=== PATIENT | male | born 2000 | race Caucasian/White ===

== ENCOUNTER 2024-05-17 13:59 | Outpatient (AMB) | payer BC, SELFPAY ==
--- NOTE | 2024-05-17 14:02 | MHC.PC.OV ---
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 Intake Note: New patient visit Allergies cotton seed oil Allergy (Unknown, Uncoded 05/17/24 14:06) Red hot Lump on skin Tobacco use date assessed: 05/17/24 Dental Screening Dental Screen Date: 05/17/24 Did you have a dental visit in the last 12 months?: Yes Did you have a dental problem in the last 6 months where you did not have access to dental care?: No Was dental information given to patient?: Patient has dentist HPI HPI Comments History of Present Illness Details This is a 23-year-old transgender male with a past medical history of ADHD, depression with anxiety an unspecified inflammatory polyarthropathy presenting to [facility]. Patient is transferring from [facility]. The patient's pronouns are he/him/they/them. Records transfer pending. The patient feels well. He is planning to visit his partner in [place] soon. Requests physical. Last appointment at [facility] was 03/10/2023. ADHD, depression with anxiety-followed by therapist and psychiatrist. This is mostly via telehealth. Taking Adderall 15 mg daily and Lexapro 10 mg daily. No SI or HI. The patient is followed by [facility]. He has a testopel implant. The patient underwent top surgery in 2019. Patient is followed by Rheumatology at [facility]. The patient takes Plaquenil. He tells me that he had been seen PT/OT and a hand specialist for wrist and hand pains. He did not improve. Patient also gets pain in the knees and more recently stiffness in his back. He does have a good mattress and is doing stretches. No tick bites or skin rashes. Patient has a pet ferret that goes outside. Using a heating pad improves back stiffness. ROS: Constitutional: No unexplained weight loss, fever, chills, fatigue or night sweats. Eyes: No vision changes, blurry vision, double vision, eye pain, eye redness, eye discharge. ENT: No hearing loss, sneezing, congestion, runny nose or sore throat. Respiratory: No shortness of breath, cough or sputum production. Cardiovascular: No chest pain, chest pressure or chest discomfort. No palpitations or pedal edema. Gastrointestinal: No anorexia, nausea, vomiting or diarrhea. No abdominal pain or blood in stool. Genitourinary: No dysuria, hematuria, urinary frequency. Neurologic: No headache, dizziness, syncope, unilateral weakness, ataxia, numbness or tingling in the extremities. Musculoskeletal: see HPI Hematologic/Lymphatics: No bleeding or bruising. No painful lymph nodes. Skin: No rash or itching. Psychiatric: No SI/HI. Physical exam: Constitutional: Alert, in no distress. Head: Normocephalic. Eyes: Pupils are equal, round and reactive to light. Extraocular muscles intact. Ear, Nose and Throat: Canals clear. TMs normal. Normal nasal mucosa. No nasal discharge. No oral lesions. Neck: Supple, Full range of motion. No lymphadenopathy. No palpable thyroid masses. Respiratory: Clear to auscultation. Cardiovascular: S1 S2 regular. No murmurs. Gastrointestinal: Abdomen soft, non-tender, non-distended. Normal bowel sounds. No palpable masses. Neurologic: No focal neurological deficits. Symmetric patellar reflexes. Moves all extremities spontaneously. Sensation intact bilaterally. Skin: No rashes or lesions. Musculoskeletal: FROM. No deformities. Extremities: Warm and well perfused. No clubbing, cyanosis or edema. Psychiatric: Normal mood and affect [facility] Medical History (Updated 05/18/24 @ 08:54 by AGUSTIN De Leon) Unspecified inflammatory polyarthropathy ADHD Transgender Depression with anxiety Surgical History (Updated 05/18/24 @ 08:54 by AGUSTIN De Leon) H/O breast surgery [place] teeth extracted Family History (Updated 05/17/24 @ 14:30 by AGUSTIN De Leon) Father Hypertension Maternal Aunt Breast cancer Paternal Grandfather Heart attack Social History Patient Tobacco Use Status: Never used Tobacco e-Cigarette/Vaping Use: Never Used service: No Current occupational status: employed 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 How often do you have a drink containing alcohol?: Monthly or less 2. How many drinks containing alcohol do you have on a typical day when you are drinking?: 1 or 2 3. How often do you have six or more drinks on one occasion?: Never Total Score: 1 Physical exam (Primary Care) Vital Signs: Last Vital Signs Temp 98.4 F 05/17/24 14:10 Pulse 88 05/17/24 14:10 Resp 14 05/17/24 14:10 BP 126/72 05/17/24 14:10 Pulse Ox 99 05/17/24 14:10 Oxygen Delivery Method Room Air 05/17/24 14:10 BMI result Body Mass Index 25.6 Tobacco/Smoking Status: Tobacco use Status Tobacco use date assessed 05/17/24 05/17/24 14:14 Patient Tobacco Use Status Never used Tobacco 05/17/24 14:14 e-Cigarette/Vaping Use Never Used 05/17/24 14:14 Assessment and Plan Assessment & Plan (1) Routine physical examination: Code(s): Z00.00 - Encounter for general adult medical examination without abnormal findings (2) Back stiffness: Code(s): M25.69 - Stiffness of other specified joint, not elsewhere classified Plan Patient is seen today for a routine physical. As part of this visit we reviewed the following issues, which are considered and essential part of preventative health in this age group: - Blood pressure screening - Cholesterol screening - Osteoporosis prevention including calcium/vitamin D intake, weight bearing exercise & smoking cessation - Nutritional and exercise counseling - Counseling of injury prevention including fire prevention, smoke alarms and seat belt usage - Prevention of and/or testing for infectious diseases - agreeable to screening for STIs including HIV testing - Education about skin cancer - Recommendations about immunizations - records transfer pending - Recommendation of an eye exam - Screening for substance abuse Will check Lyme due to recent development of back stiffness however this may be related to unspecified rheumatological disorder, and I encouraged him to bring this up to his legislative assistant at [facility]. Discussed PT and x-ray if symptoms are progressing. Patient will continue heat and stretches. Orders: Orders Syphilis Screen 05/17/24 Z11.3 - Encounter for screening for infections with a predominantly sexual mode of transmission, Z13.6 - Encounter for screening for cardiovascular disorders Hepatitis C Antibody 05/17/24 Z11.3 - Encounter for screening for infections with a predominantly sexual mode of transmission, Z13.6 - Encounter for screening for cardiovascular disorders CT NG by PCR 05/17/24 Z11.3 - Encounter for screening for infections with a predominantly sexual mode of transmission, Z13.6 - Encounter for screening for cardiovascular disorders HIV Ab/Ag 05/17/24 Z11.3 - Encounter for screening for infections with a predominantly sexual mode of transmission, Z13.6 - Encounter for screening for cardiovascular disorders Lipid Panel 05/17/24 Z13.6 - Encounter for screening for cardiovascular disorders Lyme IgG/IgM w/reflex to WB 05/17/24 Z11.3 - Encounter for screening for infections with a predominantly sexual mode of transmission, Z13.6 - Encounter for screening for cardiovascular disorders Coding Level of Care Code New Pt Prev Care 18-39yr([id number] Diagnoses Routine physical examination Z00.00 Back stiffness M25.69
[2024-05-17 14:10] VITALS: BP 126/72; PULSE 88; RESP 14; TEMP 36.9; O2SAT 99; BMI 25.6
== END 2024-05-17 14:45 | disposition home or self-care (01) ==
PROVIDERS: Visit Provider Physician Assistant Medical
DX: Z00.00 Encounter for general adult medical examination without abnormal findings (principal); M25.69 Stiffness of other specified joint, not elsewhere classified
CPT/HCPCS: 99385

== ENCOUNTER 2024-05-17 18:23 | Outpatient (REF) | payer BC, SELFPAY ==
[2024-05-18 02:35] LABS: CT PCR NOT DETECTED (Not Detect.); NG PCR NOT DETECTED (Not Detect.)
== END 2024-05-17 18:24 | disposition home or self-care (01) ==
LOC: HO.LNP 18:23
PROVIDERS: Visit Provider Physician Assistant Medical
DX: Z11.3 Encounter for screening for infections with a predominantly sexual mode of transmission (principal); Z13.6 Encounter for screening for cardiovascular disorders
CPT/HCPCS: 87491; 87591

== ENCOUNTER 2024-08-20 13:11 | Outpatient (AMB) | payer BC, SELFPAY ==
--- NOTE | 2024-08-20 13:18 | AM.OFFWIN_ITS ---
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 He noticed 2 Ticks (right lower abdomen and left Buttock) which he was able to remove them with no problem. Denies fevers, chills, nausea or vomiting. 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 Small red spot, superficial, no tick. No bleeding no infection. 2. Small red spot, some bleeding, no tick. Cleaned the area, applied Topical Abx and covered with Bandage. No infection. Neuro General: patient oriented x3, gait normal and moves all extremities Psych Speech and movement: Normal speech and movement present Assessment & Plan Assessment & Plan (1) Tick bite of buttock: Code(s): S30.860A - Insect bite (nonvenomous) of lower back and pelvis, initial encounter; W57.XXXA - Bitten or stung by nonvenomous insect and other nonvenomous arthropods, initial encounter Qualifiers: Encounter type: initial encounter Qualified Code(s): S30.860A - Insect bite (nonvenomous) of lower back and pelvis, initial encounter; W57.XXXA - Bitten or stung by nonvenomous insect and other nonvenomous arthropods, initial encounter Plan: Ordered Doxy as Prophylaxis Monitor for any Body or joint aches, fevers, chills, nausea or vomiting. Medications: New 2 doxycycline hyclate 100 mg PO ONCE 2 tabs 0RF S30.860A - Insect bite (nonvenomous) of lower back and pelvis, initial encounter, W57.XXXA - Bitten or stung by nonvenomous insect and other nonvenomous arthropods, initial encounter Coding Level of Care Code New Pt Level 4 (32693) Diagnoses Tick bite of buttock, initial encounter S30.860A; W57.XXXA Encounter type: initial encounter Time Spent (min) 20
[2024-08-20 13:19] VITALS: BP 122/74; PULSE 87; TEMP 37; O2SAT 98
== END 2024-08-20 14:15 | disposition home or self-care (01) ==
PROVIDERS: Visit Provider Nurse Practitioner Family
DX: S30.860A Insect bite (nonvenomous) of lower back and pelvis, initial encounter (principal); W57.XXXA Bitten or stung by nonvenomous insect and other nonvenomous arthropods, initial encounter

== ENCOUNTER → 2024-08-20 13:11 | Outpatient (BNVA) | payer BC, SELFPAY | PROVIDERS: Visit Provider Nurse Practitioner Family ==

== ENCOUNTER 2025-05-26 08:26 | Outpatient (REF) | payer BC, SELFPAY ==
[2025-05-26 11:40] LABS: Hematocrit 44.4 % (42.0-52.0); Hemoglobin 15.4 g/dl (14.0-18.0); Mean Corpuscular HGB Conc 34.7 g/dl (31.0-36.0); Mean Corpuscular Hemoglobin 30.7 pg (27.0-33.0); Mean Corpuscular Volume 88.6 fL (80.0-98.0); NRBC Abs Auto 0.000 X10*3/uL (0.0-0.012); NRBC Pct Auto 0.0 /100WBC (0.0-0.2); Platelet Count 210 X10*3/uL (160-400); Red Blood Count 5.01 X10*6/uL (4.60-5.80); White Blood Count 4.6 X10*3/uL (4.8-10.8)
[2025-05-26 12:12] LABS: Alanine Aminotransferase 36 U/L (0-40); Albumin Level 4.7 g/dL (3.5-5.0); Alkaline Phosphatase 68 U/L (39-117); Amylase 62 U/L (28-100); Anion Gap 9 (12-20); Aspartate Amino Transferase 39 U/L (5-37); Blood Urea Nitrogen 14 mg/dL (9-16); Calcium 9.2 mg/dL (8.4-10.2); Carbon Dioxide 29 mmol/L (22-29); Chloride 106 mmol/L (96-108); Cholesterol 134 mg/dL (<200); Estimated Glomerular Filt Rate > 60; HDL Cholesterol 36 mg/dL (>40); Lipase 33 U/L (8-78); Potassium 4.5 mmol/L (3.3-5.1); Sodium 139 mmol/L (135-145); Total Protein 7.4 g/dL (6.5-8.0); Triglycerides 91 mg/dL (<150)
== END 2025-05-26 08:27 | disposition home or self-care (01) ==
LOC: HO.WFDLDS 08:26
PROVIDERS: Visit Provider Physician Assistant Medical
DX: Z00.00 Encounter for general adult medical examination without abnormal findings (principal); K21.9 Gastro-esophageal reflux disease without esophagitis; K29.70 Gastritis, unspecified, without bleeding; F41.8 Other specified anxiety disorders; Z13.6 Encounter for screening for cardiovascular disorders
CPT/HCPCS: 36415; 80053; 80061; 82150; 83690; 84443; 85027; 96127

== ENCOUNTER 2025-05-26 08:26 | Outpatient (AMB) | payer BC, SELFPAY ==
--- NOTE | 2025-05-26 08:30 | MHC.PC.OV ---
Vital Signs 05/26/25 08:36 05/26/25 08:41 Height 5 ft 6.5 in Weight 179 lb 2 oz BMI 28.5 BP 94/64 102/64 Blood Pressure Location Rt brachial Rt brachial Position Sitting Sitting Pulse 65 Pulse Source Pulse Oximeter Temp 98.2 F Temp Source Temporal Artery Scan Pulse Oximetry (%) 98 Oxygen Delivery Method Room Air Intake Visit Reasons: Annual pe Intake Note: Laura presents in the office today for his annual physical. Allergies marijuana (cannabis) Allergy (Verified 05/26/25 08:34) Hives Seasonal Allergies Allergy (Verified 05/26/25 08:34) Congestion cotton seed oil Allergy (Unknown, Uncoded 05/26/25 08:32) Red hot Lump on skin Medication List - Last Reconciled 05/26/25 by AGUSTIN De Leon dextroamphetamine-amphetamine 15 mg (Adderall) 15 mg PO DAILY escitalopram oxalate (Lexapro) 10 mg PO DAILY hydroxychloroquine 400 mg PO DAILY pantoprazole (Protonix) 40 mg PO DAILY testosterone (Testopel) mg implant Tobacco use date assessed: 05/26/25 Dental Screening Dental Screen Date: 05/26/25 Did you have a dental visit in the last 12 months?: Yes Did you have a dental problem in the last 6 months where you did not have access to dental care?: No Was dental information given to patient?: Patient has dentist HPI HPI Comments History of Present Illness Details This is a 23-year-old transgender male with a past medical history of ADHD, depression with anxiety an unspecified inflammatory polyarthropathy presenting for a physical exam. The patient's pronouns are he/him/they/them. The patient feels well. He is planning to visit his partner in [place] soon. 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 ADHD, depression with anxiety-followed by therapist and psychiatrist. Taking Adderall 15 mg daily and Lexapro 10 mg daily. No SI or HI. The patient is followed by [facility]. He has a testopel implant. The patient underwent top surgery in 2019. Patient is followed by Rheumatology and Orthoepedics (Dr. Daniels) at [facility]. The patient takes Plaquenil. Seen by PT for bilateral knee and ankle pain. Patient has hypermobility issues and inflammatory polyarthropathy. The patient endorses heartburn for several years, gradually worsening. Takes tums multiple at least once per day which temporarily alleviate symptoms. Spicy and acidic foods make it worse. No regular NSAID use. No weight loss and abdominal pain. Denies coffee ground emesis. Rarely drinks alcohol. Patient reported last tetanus immunization was 2023. Flu vaccine recommended. ROS: Constitutional: No unexplained weight loss, fever, chills or night sweats. Eyes: No vision changes, blurry vision, double vision, eye pain, eye redness, eye discharge. ENT: No hearing loss, sneezing, congestion, runny nose or sore throat. Respiratory: No shortness of breath, cough or sputum production. Cardiovascular: No chest pain, chest pressure or chest discomfort. No palpitations or pedal edema. Gastrointestinal: No anorexia, nausea, vomiting, diarrhea, hematemesis or black tarry stools. Genitourinary: No dysuria, hematuria, urinary frequency. Neurologic: No headache, dizziness, syncope, unilateral weakness, ataxia, numbness or tingling in the extremities. Musculoskeletal: See HPI Hematologic/Lymphatics: No bleeding or bruising. No painful lymph nodes. Skin: No rash Endocrine: No cold or heat intolerance. No polyuria or polydipsia. Psychiatric: See HPI. No SI or HI.. Physical exam: Constitutional: Alert, in no distress. Head: Normocephalic. Eyes: Pupils are equal, round and reactive to light. Extraocular muscles intact. Ear, Nose and Throat: Canals clear. TMs normal. Normal nasal mucosa. No nasal discharge. No oral lesions. Neck: Supple, Full range of motion. No lymphadenopathy. No palpable thyroid masses. Respiratory: Clear to auscultation. Cardiovascular: S1 S2 regular. No murmurs. Gastrointestinal: Abdomen soft, non-tender, non-distended. Normal bowel sounds. No palpable masses. No rebound or guarding. Neurologic: No focal neurological deficits. Symmetric patellar reflexes. Moves all extremities spontaneously. Sensation intact bilaterally. Skin: No rashes or lesions. Musculoskeletal: No deformities. Extremities: Warm and well perfused. No clubbing, cyanosis or edema. Psychiatric: Normal mood and affect [facility] Medical History (Updated 05/26/25 @ 09:11 by AGUSTIN De Leon) Screening for cardiovascular condition GERD (gastroesophageal reflux disease) Routine physical examination Unspecified inflammatory polyarthropathy ADHD Transgender Depression with anxiety Surgical History (Updated 05/18/24 @ 08:54 by AGUSTIN De Leon) H/O breast surgery [place] teeth extracted Family History (Updated 05/26/25 @ 08:35 by Gay Zamora MA) Father Hypertension Maternal Aunt Breast cancer Paternal Grandfather Heart attack Social History (Updated 05/26/25 @ 08:36 by Gay Zamora MA) Alcohol intake: current Patient Tobacco Use Status: Never used Tobacco e-Cigarette/Vaping Use: Never Used Second Hand Smoke Exposure: No service: No Current occupational status: employed 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 1. Little interest or pleasure in doing things: not at all 2. Feeling down, depressed, or hopeless: several days 3. Trouble falling or staying asleep, or sleeping too much: more than half the days 4. Feeling tired or having little energy: more than half the days 5. Poor appetite or overeating: several days 6. Feeling bad about yourself - or that you are a failure or have let yourself or your family down: not at all 7. Trouble concentrating on things, such as reading the newspaper or watching television: several days 8. Moving or speaking so slowly that other people could have noticed. Or the opposite - being so fidgety or restless that you have been moving around a lot more than usual: not at all 9. Thoughts that you would be better off or of hurting yourself in some way: not at all Total score: 7 Depression Screening Interpretation: Positive Depression Screening Follow-up: Existing condition Depression Screening Done: Yes 54136 - PHQ-9 Billing: Yes Source: Developed by Drs. James Bernal, Lyubov Mobley, Kailash Thomas and colleagues, with an educational ivory from [employer]. Thrive Questionnaire Date Thrive assessed: 05/26/25 I am a: Patient What is your living situation today?: I have a steady place to live Within the past 12 months, did the food you bought not last and you didn't have the money to get more?: Sometimes True Within the past 12 months, did you worry whether your food would run out before you got money to buy more?: Sometimes True Do you have trouble paying for medicines?: No Do you have trouble getting transportation to medical appointments?: No Do you have trouble paying your heating and electricity bill?: No Do you have trouble taking care of your child, family member or friend?: No Do you have trouble with day-to-day activities such as bathing, preparing meals, shopping, managing finances, etc.?: No Are you currently unemployed and looking for a job?: No Are you interested in more education?: Yes Please select the resources that you would like help with: None Currently or been in a relationship where the following occur: I choose not to answer THRIVE Score: 2 AUDIT C Alcohol Use Questionnaire (AUDIT-C) 1. How often do you have a drink containing alcohol?: Monthly or less 2. How many drinks containing alcohol do you have on a typical day when you are drinking?: 1 or 2 3. How often do you have six or more drinks on one occasion?: Never Total Score: 1 AMERICA-7 AMB Questionnaire AMERICA-7 Date AMERICA - 7 assessed: 05/26/25 Feeling nervous, anxious, or on edge: 0 = Not at all Not being able to stop or control worryin = Not at all Worrying too much about different things: 0 = Not at all Trouble relaxin = Several days Being so restless that it is hard to sit still: 1 = Several days Becoming easily annoyed or irritable: 1 = Several days Feeling afraid as if something awful might happen: 0 = Not at all Total AMERICA-7 score (0-4 normal; 5-9 mild; 10-14 moderate; 15-21 severe): 3 Source: Developed by Drs. James Bernal, Lyubov Mobley, Kailash Thomas and colleagues, with an educational ivory from [employer]. AMERICA-7 Assessment Billing AMERICA-7 Assessment Tool: AMERICA-7 Assessment 57839 Physical exam (Primary Care) Vital Signs: Last Vital Signs Temp 98.2 F 05/26/25 08:36 Pulse 65 05/26/25 08:36 BP 94/64 05/26/25 08:36 Pulse Ox 98 08/28/25 08:36 Oxygen Delivery Method Room Air 05/26/25 08:36 BMI result Body Mass Index 28.5 Tobacco/Smoking Status: Tobacco use Status Tobacco use date assessed 05/17/24 08/20/24 13:10 Patient Tobacco Use Status Never used Tobacco 05/26/25 08:36 e-Cigarette/Vaping Use Never Used 05/26/25 08:36 Depression Screening Interpretation: Positive Depression Screening Follow-up: Existing condition Thrive Assessment: Date of Thrive Assessment Date Thrive assessed 05/26/25 05/26/25 07:55 Currently or been in a relationship where the following occur: I choose not to answer Coding Level of Care Code Est Pt Prev Care 18-39y(59840) Diagnoses Routine physical examination Z00.00 GERD (gastroesophageal reflux disease) K21.9 Additional Codes AMERICA-7 Assessment Billing - AMERICA-7 Assessment Tool: AMERICA-7 Assessment 84641 ([id number]) PHQ-9 - 03580 - PHQ-9 Billing: Yes ([id number]) Assessment & Plan Assessment & Plan (1) Routine physical examination: Code(s): Z00.00 - Encounter for general adult medical examination without abnormal findings Category: Medical Plan: Patient is seen today for a routine physical. As part of this visit we reviewed the following issues, which are considered and essential part of preventative health in this age group: - Annual Firer Portable Boiler exam - Blood pressure screening - Cholesterol screening - Osteoporosis prevention including calcium/vitamin D intake, weight bearing exercise & smoking cessation - Nutritional and exercise counseling - Counseling of injury prevention including fire prevention, smoke alarms and seat belt usage - Screening for depression - Prevention of and/or testing for infectious diseases - declined - Education about skin cancer - Recommendations about immunizations - Recommendation of an eye exam - Screening for substance abuse (2) GERD (gastroesophageal reflux disease): Code(s): K21.9 - Gastro-esophageal reflux disease without esophagitis Category: Medical Plan: I recommended avoidance of spicy and acidic foods, prepping the head up at night and avoiding eating close to bedtime. Avoid NSAID use when possible. Patient does not drink alcohol regularly. After H pylori sample is collected start pantoprazole 40 mg every morning. Plan will be to taper off of this if symptoms resolve. The patient has longstanding symptoms for years. Refer to Gastroenterology for consideration of endoscopy. Plan Follow up in 1 month to recheck GERD. Orders: Orders TSH reflex Free T4 Today F41.8 - Other specified anxiety disorders, K21.9 - Gastro-esophageal reflux disease without esophagitis, K29.70 - Gastritis, unspecified, without bleeding, Z00.00 - Encounter for general adult medical examination without abnormal findings, Z13.6 - Encounter for screening for cardiovascular disorders Comprehensive Met. Panel Today F41.8 - Other specified anxiety disorders, K21.9 - Gastro-esophageal reflux disease without esophagitis, K29.70 - Gastritis, unspecified, without bleeding, Z00.00 - Encounter for general adult medical examination without abnormal findings, Z13.6 - Encounter for screening for cardiovascular disorders Amylase Today F41.8 - Other specified anxiety disorders, K21.9 - Gastro-esophageal reflux disease without esophagitis, K29.70 - Gastritis, unspecified, without bleeding, Z00.00 - Encounter for general adult medical examination without abnormal findings, Z13.6 - Encounter for screening for cardiovascular disorders Lipid Panel Today E78.5 - Hyperlipidemia, unspecified, F41.8 - Other specified anxiety disorders, K21.9 - Gastro-esophageal reflux disease without esophagitis, K29.70 - Gastritis, unspecified, without bleeding, Z00.00 - Encounter for general adult medical examination without abnormal findings, Z13.6 - Encounter for screening for cardiovascular disorders Complete Blood Count no Diff Today F41.8 - Other specified anxiety disorders, K21.9 - Gastro-esophageal reflux disease without esophagitis, K29.70 - Gastritis, unspecified, without bleeding, Z00.00 - Encounter for general adult medical examination without abnormal findings, Z13.6 - Encounter for screening for cardiovascular disorders Lipase Today F41.8 - Other specified anxiety disorders, K21.9 - Gastro-esophageal reflux disease without esophagitis, K29.70 - Gastritis, unspecified, without bleeding, Z00.00 - Encounter for general adult medical examination without abnormal findings, Z13.6 - Encounter for screening for cardiovascular disorders H pylori Ag Stool Today F41.8 - Other specified anxiety disorders, K21.9 - Gastro-esophageal reflux disease without esophagitis, K29.70 - Gastritis, unspecified, without bleeding, Z00.00 - Encounter for general adult medical examination without abnormal findings, Z13.6 - Encounter for screening for cardiovascular disorders Medications: New pantoprazole (Protonix) 40 mg PO DAILY 30 tabs 0RF
[2025-05-26 08:36] VITALS: BP 94/64; PULSE 65; TEMP 36.8; O2SAT 98; BMI 28.5
[2025-05-26 08:41] VITALS: BP 102/64
--- OUTSIDE RECORDS SUMMARY | 2025-05-26 09:04 | XMS_ITS | Encounter Summary ---
Author Organization [facility] Address [address] [place] [id number] Phone Care Team Providers Care Pattern Checker Name Role Phone Nan Fink NP Primary Care Provider + [phone] Encounter Details Date Type Department Care Team (Late st Contact Info) Description 04/24/2024 Ancillary Orders [facility] [address] [place] [address] Carlos Galo, DO [address] [place] [id number] [email or web address] Arthralgia, unspecified joint (Primary Dx) Social History Tobacco Use Types Packs/Day Years Used Date Smoking Tobacco: Never Smokeless Tobacco: Never Alcohol Use Standard Drinks/Week Comments Never 0 (1 standard drink = 0.6 oz pur e alcohol) Education Answer Date Recorded Are you interested in more education? Not on lionel e 01/24/2023 Are you concerned about learning? Not on file 01/24/2023 No 01/24/2023 No 01/24/2023 Digital Access Answer Date Recorded No 02/25/2023 No 02/25/2023 Reliable internet access at home? Not on file 02/25/2023 Device with a working camera? Not on file Comments Unknown Sex and Gender Information Value Date Recorded Sex Assigned at Female 11/25/2020 7:40 PM EST Legal Sex Male 6:04 PM EST Gender Identity Male 11/25/2020 7:40 PM EST Sexual Orientation Lesbian or Richards 02/24/2024 7: 58 PM EDT documented as of this encounter Plan of Treatment Upcoming Encounters Date Type Department Care Team (Late st Contact Info) Description 06/20/2025 4:20 PM EDT Telemedicine [facility] - Rheumatology [address] [id number] Carlos Galo, [address] [place] [phone] [email or web address] documented as of this encounter Results * XR KNEE 4 OR MORE VIEWS (BILATERAL) (04/24/2024 10:59 AM EDT) Anatomical Region Laterality Modality Knee Bilateral, Knee Right, Knee Left Computed Radiography 04/26/2024 1:32 PM EDT Impressions 04/26/2024 1:34 PM EDT No acute osseous abnormality. Narrative 04/26/2024 1:34 PM EDT XR KNEE 4 OR MORE VIEWS (BILATERAL) Referring clinician's provided indication for this examination in Epic: Pain COMPARISON: None FINDINGS: Left Knee: Normal joint spaces. No joint effusion. No acute fracture. There is an eccentrically positioned lucent lesion with a sclerotic rim in the lateral distal femoral metadiaphysis compatible with a benign fibro-osseous lesion. Right Knee: Normal joint spaces. No joint effusion. No acute fracture. Procedure Note Mariam Gooden MD - 04/26/2024 XR KNEE 4 OR MORE VIEWS (BILATERAL) Referring clinician's provided indication for this examination in Epic:Pain COMPARISON: None FINDINGS: Left Knee: Normal joint spaces. No joint effusion. No acute fracture.There is an eccentrically positioned lucent lesion with a sclerotic rim inthe lateral distal femoral metadiaphysis compatible with a benignfibro-osseous lesion. Right Knee: Normal joint spaces. No joint effusion. No acute fracture. IMPRESSION: No acute osseous abnormality. us Carlos Yanceyjessica REES IMG XR LOWER EXTREMITY Antonette l Result documented in this encounter Visit Diagnoses Diagnosis Arthralgia, unspecified joint Arthralgia, unspecified joint- Primary documented in this encounter Care Teams Pattern Checker Relationship Specialty Start Date End Date Nan Fink NP [address] [place] [phone] PCP - General 11/25/20 documented as of this encounter Additional Source Comments The information contained in this document represents components of the legal health record. It is not the complete legal health record.[facility]
--- OUTSIDE RECORDS SUMMARY | 2025-05-26 09:04 | XMS_ITS | Clinical Summary ---
Author Organization [facility] Address [address] [place] [phone] Phone Care Team Providers Care Web Sizer Name Role Phone Nan Worthington MD Primary Care Pr ovider Allergies Active Allergy Reactions Criticality Noted Date Comments Cottonseed Oil 10/16/2019 Medications B-D 3CC LUER-ANGEL SYR 25GX5/8 25G X 5/8 3 ML misc Inject 1 Units as directed See admin instructions. 0 9 Active testosterone enanthate 200 MG/ML injection Inject 0.425 mL into the muscle once a week. 9 Active Melatonin (Melatonin Maximum Strength) 5 MG tablet Take 1 tablet by mouth nightly. Active escitalopram 5 MG tabletIndications: Other depression Take 1.5 tablets (7.5 mg total) by mouth nightly. 135 tablet 3 3 Active methylphenidate (Ritalin) 20 MG tabletIndications: Attention deficit hyperactivity disorder (ADHD), predominantly inattentive type Take 2 tablets (40 mg total) by mouth 2 (two) times a day. 120 tablet 3 Active Testosterone (Testopel) 75 MG pellet 525 mg. 3 Active amphetamine-dextro amphetamine XR (Adderall XR) 10 MG 24 hr capsuleIndications :Attention deficit hyperactivity disorder (ADHD), predominantly inattentive type Take 1 capsule (10 mg total) by mouth every morning. 30 capsule 3 Active Active Problems Problem Noted Date Diagnosed Date Vitamin D deficiency 03/10/2023 Heart burn 03/15/2020 Assessment & Plan (03/15/2020 10:41 AM EDT): Encouraged to continue use of Tums as needed though advised against use of ibuprofen to address similar symptoms as it may worsen symptoms of reflux. 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 017 Immunizations Immunization Administration Dates Next Due COVID-19 Moderna, bivalent, 12+ years 06/19/2022 DTaP 02/04/2006, 2,06/24/2001,04/20,02/18/2001 HPV Vaccine 9 Valent 08/13/2016,03/26/2016,01/16 Hep A, Adult 03/05/2021 Hep B, ped/adol 12/09/2001,01/14/2001,2000 Hib (PRP-T) 06/07/2002, 1,04/20/2001,02/18 IPV 02/04/2006, 1,04/20/2001,02/18 Influenza, injectable, quadr ivalent, preservative free 08/30/2022,07/24/2021,07/11/2020,07/28,07/23/2017 Influenza, intranasal, trivalent 07/01/2011 MMR 02/04/2006,12/09/2001 Meningococcal B Bexsero 03/24/2019,02/16/2019 Meningococcal Conj (Menveo) MCV4O 01/22/2017, Pneumococcal Conjugate 06/24/2001,04/20/2001, Td (adult) (Tenivac), 5 Lf t etanus toxoid, PF, adsorbed 03/05/2021 Tdap 04/16/2011 Varicella 04/16/2011,12/09/2001 Family History Medical History Relation Name Comments No Known Problems Brother 1 Dion No Known Problems Brother 2 Romario Breast cancer Maternal Grandmother Hyperlipidemia Mother Relation Name Status Comments Brother 1 Dion Alive Brother 2 Romario Alive Father Alive Maternal Grandmother Alive breast cancer survivor at 40 yo Mother Alive hypercholestero lemia Social History Tobacco Use Types Packs/Day Years Used Date Smoking Tobacco: Never Smokeless Tobacco: Never Tobacco Cessation:Counseling Given: Yes Comments:Never smoker Alcohol Use Standard Drinks/Week Comments Never 0 (1 standard drink = 0.6 oz pur e alcohol) Hunger/Food Answer Date Recorded In the last 12 months, did y ou or your family ever eat less than you felt you should because there wasn't enough money for food? No 03/08/2023 Stable Housing Answer Date Recorded Are you worried that in the next 2 months you may not have stable housing? No 03/08/2023 Transportation Concerns Answer Date Rec orded In the last 12 months, have you or your family ever had to go without healthcare because you didn't have a way to get there? No 03/08/2023 Hazards in Home Answer Date Recorded Think about the place you li ve. Do you have problems with any of the following? Pests (mice or roaches), mold, no/not working smoke detectors, water leaks, no window guards. No 2022 Financing Utilities Answer Date Recorde d In the last 12 months, has t he electric, gas, oil, or water company threatened to shut off your services in your home? No 03/08/2023 Safety at Home Answer Date Recorded Are you or your family worried about feeling saf e in your home? No 03/08/2023 Outside Support Answer Date Recorded Do you feel that you need mo re support from other people or programs to help you care for yourself or your family? No 03/08/2023 Understanding Health Concerns Answer Da te Recorded Do you need help understandi ng your or your child's healthcare needs (diagnosis, medications, plan, etc.)? No 03/08/2023 Financing Health Concerns Answer Date R ecorded In the last 12 months, was t here a time when your child needed to see a doctor or get medications or supplies but could not because of cost? No 03/08/2023 Missing School or Work Answer Date Nestor rded Did you or your child miss s chool or work because of a health problem that could have been avoided? No 03/08/2023 Comments Unknown Sex and Gender Information Value Date Recorded Sex Assigned at Female 03/05/2021 4:53 PM EDT Legal Sex Male 4:23 PM EDT Gender Identity Transgender Male 03/05/2021 4:53 PM EDT Sexual Orientation Not on file Last Filed Vital Signs Vital Sign Reading Time Taken Comments Blood Pressure 124/60 03/10/2023 9:33 AM EDT Pulse 79 05/10/2013 12:00 AM EDT Temperature 36.6 C (97.8 F) 10/21/2017 12:00 AM EST Respiratory Rate - - Oxygen Saturation 99% 05/10/2013 12:00 AM EDT Inhaled Oxygen Concentration - - Weight 82.2 kg (181 lb 2 oz) 03/10/2023 9:33 AM EDT Height 170.2 cm (5' 7 ) 03/10/2023 9:33 AM EDT Body Mass Index 28.37 03/10/2023 9:33 AM EDT Plan of Treatment Health Maintenance Due Date Last Done Comments HIV Screening 2000 Syphilis Screening (consider for higher risk patients) 2000 Hepatitis A Vaccines (2 of 2 - Risk 2-dose series) 09/04/2021 03/05/2021 COVID-19 Vaccine ( season) 2024 10/07/2023, 06/19/2022, 09/04/2021, Additional history exists Influenza Vaccines (#1) 2025 10/07/19 24, 08/30/2022, 07/24/2021, Additional history exists DTaP,Tdap,and Td Vaccines (8 - Td or Tdap) 03/05/2031 03/05/2021, 04/16/2011, 02/04/2006, Additional history exists Pneumococcal Vaccine Aged Out 06/24/2001, 04/20/2001, 02/18/2001 No longer eligible based on patient's age to complete this topic Hepatitis B Vaccines Completed 12/09/2001, 01/14/2001, 2000 HIB Vaccines Completed 06/07/2002, 05/31, 04/20/2001, Additional history exists IPV Vaccines Completed 02/04/2006, 05/31, 04/20/2001, Additional history exists MMR Vaccines Completed 02/04/2006, 12/09/2001 Varicella Vaccines Completed 04/16/2011, 12/09/2001 HPV Vaccines Completed 08/13/2016, 02/28, 01/17/2016 Meningococcal Vaccine Completed 01/22/2017, 012 Men B Vaccine Completed 03/24/2019, 02/16/2019 Procedures * Due to [place] Near[employer] law, this organization might not be sharing sensitive test results. Procedure Name Priority Date/Time Associated Diagnosis Comments CHLAMYDIA AND GONORRHEA, AMPLIFIED Routine 03/10/2023 10:40 AM EDT Screen for sexually transmitted diseases from Last 3 Months or Most Recently Relevant to Health Maintenance Results * Due to [place] law, this organization might not be sharing sensitive test results. * Chlamydia and Gonorrhea, Amplified (03/10/2023 10:40 AM EDT) Chlamydia trachomatis RNA, TMA NOT DETECTED NOT DETECTED [facility] [facility] Neisseria gonorrhoeae, AMANDA NOT DETECTED NOT DETECTED [employer] Comment Sk[employer]bl Comment: The analytical performance characteristics of this assay, when used to test SurePath(TM) specimens have been determined by [employer]. The modifications have not been cleared or approved by the FDA. This assay has been validated pursuant to the CLIA regulations and is used for clinical purposes. For additional information, please refer to https://education.Kwanji/faq/LSB039 (This link is being provided for information/ educational purposes only.) Urine (Urine) 03/10/2023 10: 40 AM EDT 03/11/2023 12:03 AM EDT Narrative Resulting Agency Comment Performing Organization Information: Site ID: [id number] Name: [employer] Address: [address] [place] [id number] Director: Cecilia Martini Nan Worthington MD LAB MICROBIOLOGY - GENERAL ORDERABLES Final Result [employer] from Last 3 Months or Most Recently Relevant to Health Maintenance Care Teams Web Sizer Relationship Specialty Start Date End Date Nan Worthington MD [address] [place] [address] [phone] [facility] - General 11/20/16
--- OUTSIDE RECORDS SUMMARY | 2025-05-26 09:04 | XMS_ITS | Encounter Summary ---
Author Organization [facility] Address [address] [place] [phone] Phone Care Team Providers Care Tire Worker Name Role Phone Nan Worthington MD Primary Care Pr ovider Reason for Visit * Reason Onset Date Comments Med Refill 03/02/2022 Encounter Details Date Type Department Care Team ([facility] st Contact Info) Description 03/02/2022 Refill [facility] [address] [address] Nan Worthington MD [address] [place] [phone] Attention deficit disorder (ADD) without hyperactivity Social History Tobacco Use Types Packs/Day Years Used Date Smoking Tobacco: Never Smokeless Tobacco: Never Comments:Never smoker Alcohol Use Standard Drinks/Week Comments Never 0 (1 standard drink = 0.6 oz pur e alcohol) Hunger/Food Answer Date Recorded In the last 12 months, did y ou or your family ever eat less than you felt you should because there wasn't enough money for food? No 03/06/2022 Stable Housing Answer Date Recorded Are you worried that in the next 2 months you may not have stable housing? No 03/06/2022 Transportation Concerns Answer Date Rec orded In the last 12 months, have you or your family ever had to go without healthcare because you didn't have a way to get there? No 03/06/2022 Hazards in Home Answer Date Recorded Think about the place you li ve. Do you have problems with any of the following? Pests (mice or roaches), mold, no/not working smoke detectors, water leaks, no window guards. Yes 2021 Financing Utilities Answer Date Recorde d In the last 12 months, has t he electric, gas, oil, or water company threatened to shut off your services in your home? No 03/06/2022 Safety at Home Answer Date Recorded Are you or your family worried about feeling saf e in your home? No 03/06/2022 Outside Support Answer Date Recorded Do you feel that you need mo re support from other people or programs to help you care for yourself or your family? No 03/06/2022 Understanding Health Concerns Answer Da te Recorded Do you need help understandi ng your or your child's healthcare needs (diagnosis, medications, plan, etc.)? No 03/06/2022 Financing Health Concerns Answer Date R ecorded In the last 12 months, was t here a time when your child needed to see a doctor or get medications or supplies but could not because of cost? No 03/06/2022 Missing School or Work Answer Date Nestor rded Did you or your child miss s chool or work because of a health problem that could have been avoided? No 03/06/2022 Comments Unknown Sex and Gender Information Value Date Recorded Sex Assigned at Female 03/05/2021 4:53 PM EDT Legal Sex Male 4:23 PM EDT Gender Identity Transgender Male 03/05/2021 4:53 PM EDT Sexual Orientation Not on file documented as of this encounter Miscellaneous Notes * Telephone Encounter - Toribio Dias LPN - 03/03/2022 7:54 AM EDT Refill requested for Finneas's methylphenidate (Concerta, Metadate, Methylin, Ritalin). The medication has been satisfactory. The medication was last refilled on 01/28/2022 which is greater than 28 days ago so a refill can be obtained. The patient needs an office visit every year (Adults). The dateof the last office visit for a medication check was 03/05/2021. - patient has a scheduled appointment with PCP on 03/06/2022 at 4 pm Signed Toribio Dias LPN 7:56 AM documented in this encounter Plan of Treatment Not on file documented as of this encounter Visit Diagnoses Diagnosis Attention deficit disorder (ADD) without hyperactivity documented in this encounter Care Teams Tire Worker Relationship Specialty Start Date End Date Nan Worthington MD [address] [place] [phone] PCP - General 11/20/16 documented as of this encounter
--- OUTSIDE RECORDS SUMMARY | 2025-05-26 09:04 | XMS_ITS | Clinical Summary ---
Author Organization [facility] Address [address] [place] [address] Phone Care Team Providers Care Escrow Representative Name Role Phone Nan Hutchins MD Primary Care Provider Nan Hutchins MD Unavailable Nan Hutchins MD Unavailable Allergies Active Allergy Reactions Criticality Noted Date Comments Cottonseed Oil 09/18/2022 Other Reaction(s): Skin reaction weak Reaction Type from PowerChart: Allergy; Medications * This document contains information received from the source organization and may not represent a complete record from that organization. MELATONIN ORAL Entered: 09/03/21 13:01:00 EST 1 Active escitalopram (Lexapro) 10 mg tablet Entered: 10/31/23 13:00:00 EST 4 Active amphetamine-dext roamphetamine XR (Adderall XR) 15 mg 24 hr capsule Take 1 capsule by mouth every morning. 4 Active hydroxychloroqui ne (Plaquenil) 200 mg tablet Take 400 mg by mouth 1 time each day. Active testosterone (TestopeL) implant Inject 8 each under the skin every 3 months. 4 Active testosterone enanthate (Delatestryl) 200 mg/mL injection Inject into a muscle as directed 1 time each week. 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 Date Type Department Care Team Description 03/03/2025 9:30 AM EDT Office Visit [facility] [address] [place] [phone] Gema Bond MD Gender dysphoria in adult (Primary Dx) 03/03/2025 Travel from Last 3 Months Immunizations Immunization Administration Dates Next Due Hep A, Adult 03/05/2021 Influenza, Unspecified 08/30/2022,2020,07/11/2020,2018 Moderna SARS-CoV-2 Bivalent Booster 12+ 06/19/2022 Pfizer Purple Cap SARS-CoV-2 09/04/2021,02/12/20,01/21/2021 Td (adult), unspecified 03/05/2021 Family History Medical History Relation Name Comments Migraines Brother Breast cancer Other Aunt Relation Name Status Comments Brother Other Aunt Social History Tobacco Use Types Packs/Day Years Used Date Smoking Tobacco: Never Passive Smoke Exposure: Current Smokeless Tobacco: Never Tobacco Cessation:Counseling Given: Not Answered Comments Unknown Sex and Gender Information Value Date Recorded Sex Assigned at Female 05/26/2024 7:47 AM EDT Legal Sex Male 7:47 AM EDT Gender Identity Not on file Sexual Orientation Not on file Last Filed Vital Signs Vital Sign Reading Time Taken Comments Blood Pressure 124/75 03/03/2025 10:30 AM EDT Pulse 83 03/03/2025 10:30 AM EDT Temperature 37.3 C (99.1 F) 10/29/2024 3:43 PM EST Respiratory Rate - - Oxygen Saturation 100% 10/29/2024 3:43 PM EST Inhaled Oxygen Concentration - - Weight 78.3 kg (172 lb 9.9 oz) 03/03/2025 10:30 AM EDT Height 169.9 cm (5' 6.89 ) 03/03/2025 10:30 AM E DT Body Mass Index 27.13 03/03/2025 10:30 AM EDT Plan of Treatment Upcoming Encounters Date Type Department Care Team (Late st Contact Info) Description 06/29/2025 2:00 PM EDT Office Visit [facility] [address] [place] [phone] Gema Bond MD [address] [place] [address] Health Maintenance Due Date Last Done Comments Hepatitis C Screening 2018 COVID-19 Vaccine ( season) 2024 06/19/2022, 09/04/2021, 02/11/2021, Additional history exists Influenza Vaccine (#1) 2025 , 07/24/2021, 07/11/2020, Additional history exists DTaP/Tdap/Td Vaccines (8 - Td or Tdap) 03/05/2031 03/05/2021, 04/16/2011, 02/04/2006, Additional history exists Pneumococcal Vaccine: Pediatrics (0 to 5 Years) and At-Risk Patients (6 to 49 Years) Aged Out 06/24/2001, 04/20/2001, 02/18/2001 No longer eligible based on patient's age to complete this topic Hepatitis B Vaccines Completed 12/09/2001, 01/14/2001, 2000 HIB Vaccines Completed 06/07/2002, 05/31, 04/20/2001, Additional history exists IPV Vaccines Completed 02/04/2006, 05/31, 04/20/2001, Additional history exists MMR Vaccines Completed 02/04/2006, 12/09/2001 Varicella Vaccines Completed 04/16/2011, 12/09/2001 HPV Vaccines Completed 08/13/2016, 02/28, 01/17/2016 Meningococcal Vaccine Completed 01/22/2017, 05/30/2 012 Meningococcal B Vaccine Completed 03/24/2019, 02/16 Hepatitis A Vaccines Aged Out 03/05/2021 No long er eligible based on patient's age to complete this topic HIV Screening Completed 10/11/2021 Rotavirus Vaccines Aged Out No longer eligible based on patient's age to complete this topic Procedures Procedure Name Priority Date/Time Associated Diagnosis Comments RAPID HIV 1 AND 2 SCREEN Routine 10/11/2021 9:03 AM EST from Last 3 Months or Most Recently Relevant to Health Maintenance Results * HIV-1/2 Combo Ag/Ab w/ Reflex Confirmation (10/11/2021 9:03 AM EST) HIV-1/2 Combo Antigen/Antibo dy Nonreactive [facility] Comment: 1.) (Medium Importance) Result Comment by SYSTEM , SYSTEM on October 11, 2021 15:29 The specimen was non-reactive for HIV-1 and HIV-2 antibodies, and p24 antigen. Based on this non-reactive screen result, further reflexive testing was not indicated. HIV-1,2 Combo Ag/Ab EIA This assay should not be used for blood donor screening, associated re-entry protocols, or for screening Human Cell, Tissues and Cellular and Tissue-Based Products (HCT/P). 10/11/2021 9:03 AM EST 10/11/2021 2:48 PM EST us Yazmin Gastelum MD LAB BLOOD ORDERABLES Final Resul t [facility] [address] [place] [address], from Last 3 Months or Most Recently Relevant to Health Maintenance Insurance [facility] [place] [address] [facility] Care Teams Escrow Representative Relationship Specialty Start Date End Date Nan Hutchins MD [address] [place] [phone] PCP - General 02/16/24 Nan Hutchins MD [address] [place] [phone] PCP - Clinical PCP 09/01/17 Nan Hutchins MD [address] [place] [phone] PCP - Insurance PCP 09/01/17
--- OUTSIDE RECORDS SUMMARY | 2025-05-26 09:04 | XMS_ITS | Encounter Summary ---
Author Organization [facility] Address [address] [place] [phone] Phone Care Team Providers Care Letter Stamping Machine Operator Name Role Phone Nan Worthington MD Primary Care Pr ovider Reason for Visit * Reason Comments Med Refill Encounter Details Date Type Department Care Team ([facility] st Contact Info) Description 11/14/[address] [address] Nan Worthington MD [address] [place] [phone] Other depression Social History Tobacco Use Types Packs/Day Years [...] there wasn't enough money for food? No 02/23/2020 Stable Housing Answer Date Recorded Are you worried that in the next 2 months you may not have stable housing? No 02/23/2020 Transportation Concerns Answer Date Rec orded In the last 12 months, have you or your family ever had to go without healthcare because you didn't have a way to get there? No 02/23/2020 Hazards in Home Answer Date Recorded Think about the place you li ve. Do you have problems with any of the following? Pests (mice or roaches), mold, no/not working smoke detectors, water leaks, no window guards. Yes 2019 Financing Utilities Answer Date Recorde d In the last 12 months, has t he electric, gas, oil, or water company threatened to shut off your services in your home? No 02/23/2020 Safety at Home Answer Date Recorded Are you or your family worried about feeling saf e in your home? No 02/23/2020 Outside Support Answer Date Recorded Do you feel that you need mo re support from other people or programs to help you care for yourself or your family? No 02/23/2020 Understanding Health Concerns Answer Da te Recorded Do you need help understandi ng your or your child's healthcare needs (diagnosis, medications, plan, etc.)? No 02/23/2020 Financing Health Concerns Answer Date R ecorded In the last 12 months, was t here a time when your child needed to see a doctor or get medications or supplies but could not because of cost? No 02/23/2020 Missing School or Work Answer Date Nestor rded Did you or your child miss s chool or work because of a health problem that could have been avoided? No 02/23/2020 Comments Unknown Sex and Gender Information Value Date Recorded Sex Assigned at Female 03/05/2021 4:53 PM EDT Legal Sex Male 4:23 PM EDT Gender Identity Transgender Male 03/05/2021 4:53 PM EDT Sexual Orientation Not on file documented as of this encounter Miscellaneous Notes * Telephone Encounter - Nan Worthington MD - 11/14/2021 5:05 PM EST Medication discontinued documented in this encounter Plan of Treatment Not on file documented as of this encounter Visit Diagnoses Diagnosis Other depression documented in this encounter Care Teams Letter Stamping Machine Operator Relationship Specialty Start Date End Date Nan Worthington MD [address] [place] [phone] PCP - General 11/20/16 documented as of this encounter
--- OUTSIDE RECORDS SUMMARY | 2025-05-26 09:04 | XMS_ITS | Encounter Summary ---
Author Organization [facility] Address [address] [place] [phone] Phone Care Team Providers Care Tactical Response Group Officer Name Role Phone Nan Worthington MD Primary Care Pr ovider Encounter Details Date Type Department Care Team (Late st Contact Info) Description 11/27/2017 Conversion Encounter [facility] [address] [place] [address] Nan Worthington MD [address] [place] [phone] Social History Tobacco Use Types Packs/Day Years Used Date Smoking Tobacco: Never Assessed Comments Unknown Sex and Gender Information Value Date Recorded Sex Assigned at Female 03/05/2021 4:53 PM EDT Legal Sex Male 4:23 PM EDT Gender Identity Transgender Male 03/05/2021 4:53 PM EDT Sexual Orientation Not on file documented as of this encounter Plan of Treatment Not on file documented as of this encounter Visit Diagnoses Not on filedocumented in this encounter Care Teams Tactical Response Group Officer Relationship Specialty Start Date End Date Nan Worthington MD [address] [place] [phone] PCP - General 11/20/16 documented as of this encounter
--- OUTSIDE RECORDS SUMMARY | 2025-05-26 09:04 | XMS_ITS | Encounter Summary ---
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 (Primary Dx) Social History Tobacco Use Types Packs/Day Years Used Date Smoking Tobacco: Never Assessed Comments Unknown Sex and Gender Information Value Date Recorded Sex Assigned at Female 05/26/2024 7:47 AM EDT Legal Sex Male 7:47 AM EDT Gender Identity Not on file Sexual Orientation Not on file documented as of this encounter Plan of Treatment Upcoming Encounters Date Type Department Care Team (Late Contact Info) Description 06/29/2025 2:00 PM EDT Office Visit [facility] Gynecology [address] [place] [address] Gema Bond MD [address] [place] [address] Scheduled Orders Name Type Priority Associated Diagnoses Orde r Schedule Hemoglobin, Blood Lab Routine 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 Expected: 04/12/2024, Expires: 04/09/2025 Hematocrit, Blood Lab Routine 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 Expected: 04/12/2024, Expires: 04/09/2025 Testosterone Level Lab Routine 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 Expected: 04/12/2024, Expires: 04/09/2025 documented as of this encounter Visit Diagnoses Diagnosis 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- Primary documented in this encounter Care Teams Crepe Sole Scourer Relationship Specialty Start Date End Date Nan Hutchins MD [address] [place] [address] PCP - General 02/16/24 Nan Hutchins MD [address] [place] [phone] PCP - Clinical PCP 09/01/17 Nan Hutchins MD [address] [place] [address] PCP - Insurance PCP 09/01/17 documented as of this encounter
--- OUTSIDE RECORDS SUMMARY | 2025-05-26 09:04 | XMS_ITS | Encounter Summary ---
Author Organization [facility] Address [address] [place] [address] Phone Care Team Providers Care Strategic Buyer Name Role Phone Nan Worthington MD Primary Care Pr ovider Reason for Visit * Reason Onset Date Comments Med Refill 04/07/2020 Encounter Details Date Type Department Care Team ([facility] st Contact Info) Description 04/07/2020 Refill [facility] [address] [address] Nan Worthington MD [address] [place] [address] Attention deficit disorder (ADD) without hyperactivity; Encounter for medication review Social History Tobacco Use Types Packs/Day Years [...] Diagnosis Attention deficit disorder (ADD) without hyperactivity Encounter for medication review documented in this encounter Care Teams Strategic Buyer Relationship Specialty Start Date End Date Nan Worthington MD [address] [place] [address] PCP - General 11/20/16 documented as of this encounter
--- OUTSIDE RECORDS SUMMARY | 2025-05-26 09:04 | XMS_ITS | Encounter Summary ---
Author Organization [facility] Address [address] [place] [address] Phone Care Team Providers Care Welder Helper Name Role Phone Nan Worthington MD Primary Care Pr ovider Reason for Visit * Reason Onset Date Comments Med Refill 11/28/2021 Encounter Details Date Type Department Care Team ([facility] st Contact Info) Description 11/28/2021 Refill [facility] [address] [address] Nan Worthington MD [address] [place] [address] Attention deficit disorder (ADD) without hyperactivity Social [...] hyperactivity documented in this encounter Care Teams Welder Helper Relationship Specialty Start Date End Date Nan Worthington MD [address] [place] [address] PCP - General 11/20/16 documented as of this encounter
--- OUTSIDE RECORDS SUMMARY | 2025-05-26 09:04 | XMS_ITS | Encounter Summary ---
Author Organization [facility] Address [address] [facility] [address] [place] [address] Phone Care Team Providers Care Wafer Polishing Worker Name Role Phone Nan Fink NP Primary Care Provider + [phone] Encounter Details Date Type Department Care Team (Late st Contact Info) Description 11/25/2020 Procedure Pass [facility], Ct Scan - [address] [address] Social History Tobacco Use Types Packs/Day Years Used Date Smoking Tobacco: Never Smokeless Tobacco: Never Alcohol Use Standard Drinks/Week Comments Never 0 (1 standard drink = 0.6 oz pur e alcohol) Comments Unknown Sex and Gender Information Value Date Recorded Sex Assigned at Female 11/25/2020 7:40 PM EST Legal Sex Male 6:04 PM EST Gender Identity Male 11/25/2020 7:40 PM EST Sexual Orientation Lesbian or Richards 02/24/2024 7: 58 PM EDT documented as of this encounter Functional Status * Calculated C-SSRS Risk Score (Lifetime/Recent) Answer Date of Assessment Author Moderate Risk 11/25/2020 7:36 PM EST Gwen Cochran RN * [place] Suicide Severity Rating Scale (Screener/Recent Self-Report) Question Answer Date of Assessment Author 1. Wish to be (Past 1 Month) No 11/25/2020 7:36 PM EST Gwen Cochran, DANN 2. Non-Specific Active Suicidal Thoughts (Past 1 Month) No 11/25/2020 7:36 PM EST Gwen Cochran, DANN 6. Suicidal Behavior (Lifetime) Yes 11/25/2020 7:36 PM Gwen Valencia, RN 6. Suicidal Behavior (3 Months) No 11/25/2020 7:36 PM Gwen Valencia, DANN documented as of this encounter Plan of Treatment Upcoming Encounters Date Type Department Care Team (Late st Contact Info) Description 06/20/2025 4:20 PM EDT Telemedicine [facility] - Rheumatology [address] [address] Carlos Galo, [address] [place] [address] [email or web address] documented as of this encounter Visit Diagnoses Not on filedocumented in this encounter Care Teams Wafer Polishing Worker Relationship Specialty Start Date End Date Nan Fink NP [address] [place] [phone] PCP - General 11/25/20 documented as of this encounter Additional Source Comments The information contained in this document represents components of the legal health record. It is not the complete legal health record.[facility]
--- OUTSIDE RECORDS SUMMARY | 2025-05-26 09:04 | XMS_ITS | Encounter Summary ---
Author Organization [facility] Address [address] [place] [address] Phone Care Team Providers Care Print Shop Helper Name Role Phone Nan Hutchins MD Primary Care Provider Nan Hutchins MD Unavailable Nan Hutchins MD Unavailable Encounter Details Date Type Department Care Team (Late st Contact Info) Description 02/19/2024 Abstract Barb Conversion ProviderElis MD [address] [place] [address] [phone] Laboratory test (Primary Dx) Social History Tobacco Use Types [...] Description 06/29/2025 2:00 PM EDT Office Visit [facility] Gynecology 2 [place] [phone] Gema Bond MD [address] [place] [address] documented as of this encounter Visit Diagnoses Diagnosis Laboratory test- Primary Laboratory examination, unspecified documented in this encounter Care Teams Print Shop Helper Relationship Specialty Start Date End Date Nan Hutchins MD [address] [place] [address] PCP - General 02/16/24 Nan Hutchins MD [address] [place] [phone] PCP - Clinical PCP 09/01/17 Nan Hutchins MD [address] [place] [phone] PCP - Insurance PCP 09/01/17 documented as of this encounter
--- OUTSIDE RECORDS SUMMARY | 2025-05-26 09:04 | XMS_ITS | Encounter Summary ---
Author Organization [facility] Address [address] [place] [address] Phone Care Team Providers Care Concrete Bucket Unloader Name Role Phone Nan Worthington MD Primary Care Pr ovider Reason for Visit * Reason Comments Med Refill Encounter Details Date Type Department Care Team ([facility] st Contact Info) Description 01/18/[address] [address] Nan Worthington MD [address] [place] [address] Vitamin D deficiency Social History Tobacco Use Types Packs/Day Years [...] as of this encounter Visit Diagnoses Diagnosis Vitamin D deficiency documented in this encounter Care Teams Concrete Bucket Unloader Relationship Specialty Start Date End Date Nan Worthington MD [address] [place] [address] PCP - General 11/20/16 documented as of this encounter
--- OUTSIDE RECORDS SUMMARY | 2025-05-26 09:04 | XMS_ITS | Encounter Summary ---
Author Organization [facility] Address [address] [place] [address] Phone Care Team Providers Care Roll Bucker Name Role Phone Nan Fink NP Primary Care Provider + [phone] Encounter Details Date Type Department Care Team (Late st Contact Info) Description 05/05/2025 Procedure Pass MRI, [facility] [address] [place] [phone] Social History Tobacco Use Types Packs/Day Years Used Date Smoking Tobacco: Never Smokeless Tobacco: Never Alcohol Use Standard Drinks/Week Comments Never 0 (1 standard drink = 0.6 oz pur e alcohol) Child or Family Care Answer Date Record ed Do you have problems with on e of the following making it difficult for you to work, study, or receive health care? No 06/21/2024 Education Answer Date Recorded Are you interested in help w ith more adult education (for example, completing high school, GED, job training, learning the [place] language, technical skills, or developing parenting skills)? No 06/21/2024 Are you concerned about learning? Not on file 06/21/2024 No 06/21/2024 Yes 06/21/2024 Food Answer Date Recorded Within the past 6 months we worried whether our food would run out before we got money to buy more. I choose not to answer 06/21/2024 Within the past 6 months the food we bought just didn't last and we didn't have enough money to get more. I choose not to answer 06/21/2024 Residential Stability Answer Date Recor ded What is your housing situation today? I have jon sing 06/21/2024 How many times have you moved in the past 12 fri ths? Two or more times 06/21/2024 Paying for Meds Answer Date Recorded Do you have trouble paying for medicines? No 06/21/2024 Paying Utility Bills Answer Date Record ed Do you have trouble paying your heating or elect ricity bill? Yes 06/21/2024 Transportation Answer Date Recorded Has the lack of transportati on kept you from medical appointments or from getting medications? No 06/21/2024 Unemployment Answer Date Recorded Are you currently unemployed or working on a part-time or temporary basis, and looking for work? No 06/21/2024 Digital Access Answer Date Recorded No 06/21/2024 Yes 06/21/2024 Do you have reliable internet access at home? Ye s 06/21/2024 Do you have a device (e.g., phone, tablet, computer) with a working camera? Yes 06/21/2024 Comments Unknown Sex and Gender Information Value [...] Info) Description 06/20/2025 4:20 PM EDT Telemedicine [facility] - Rheumatology [address] [address] Carlos Galo DO [address] [place] [address] [email or web address] documented as of this encounter Visit Diagnoses Not on filedocumented in this encounter Care Teams Roll Bucker Relationship Specialty Start Date End Date Nan Fink NP [address] [place] [address] PCP - General 11/25/20 documented as of this encounter Additional Source Comments The information contained in this document represents components of the legal health record. It is not the complete legal health record.[facility]
--- OUTSIDE RECORDS SUMMARY | 2025-05-26 09:04 | XMS_ITS | Encounter Summary ---
Author Organization [facility] Address [address] [place] [address] Phone Care Team Providers Care Apprentice Painter Hand Name Role Phone Nan Worthington MD Primary Care Pr ovider Reason for Visit * Reason Onset Date Comments Med Refill 11/28/2021 Encounter Details Date Type Department Care Team ([facility] st Contact Info) Description 11/28/2021 Refill [facility] [address] [address] Nan Worthington MD [address] [place] [address] Attention deficit disorder (ADD) without hyperactivity Social [...] hyperactivity documented in this encounter Care Teams Apprentice Painter Hand Relationship Specialty Start Date End Date Nan Worthington MD [address] [place] [address] PCP - General 11/20/16 documented as of this encounter
--- OUTSIDE RECORDS SUMMARY | 2025-05-26 09:04 | XMS_ITS | Encounter Summary ---
Author Organization [facility] Address [address] [place] [address] Phone Care Team Providers Care Commission Sales Associate Name Role Phone Nan Worthington MD Primary Care Pr ovider Reason for Visit * Reason Onset Date Comments Med Refill 11/13/2022 Encounter Details Date Type Department Care Team ([facility] st Contact Info) Description 11/13/2022 Refill [facility] [address] [address] Nan Worthington MD [address] [place] [address] Other depression Social History Tobacco Use Types [...] encounter Miscellaneous Notes * Telephone Encounter - Caren Bourgeois NP - 11/14/2022 8:03 AM EST Needs to schedule med check. Looks like multiple [employer] messages have been sent regarding need to schedule med check but they haven't been read. Please call patient to schedule. I can refill once a med check is scheduled. * Telephone Encounter - Lou Meza RN - 11/14/2022 7:43 AM EST Last appt 03/06 documented in this encounter Plan of Treatment Not on file documented as of this encounter Visit Diagnoses Diagnosis Other depression documented in this encounter Care Teams Commission Sales Associate Relationship Specialty Start Date End Date Nan Worthington MD [address] [place] [address] PCP - General 11/20/16 documented as of this encounter
--- OUTSIDE RECORDS SUMMARY | 2025-05-26 09:04 | XMS_ITS | Encounter Summary ---
Author Organization [facility] Address [address] [place] [address] Phone Care Team Providers Care Applications Systems Engineer Name Role Phone Nan Worthington MD Primary Care Pr ovider Reason for Visit * Reason Comments Med Refill Encounter Details Date Type Department Care Team ([facility] st Contact Info) Description 10/23/2021 Refill [facility] [address] [address] Robel Roblero MD [address] [place] [phone] Other depression Social History Tobacco Use Types [...] depression documented in this encounter Care Teams Applications Systems Engineer Relationship Specialty Start Date End Date Nan Worthington MD [address] [place] [address] PCP - General 11/20/16 documented as of this encounter
--- OUTSIDE RECORDS SUMMARY | 2025-05-26 09:05 | XMS_ITS | Encounter Summary ---
Author Organization [facility] Address [address] [place] [address] Phone Care Team Providers Care Director Informatics Name Role Phone Nan Worthington MD Primary Care Pr ovider Reason for Visit * Reason Onset Date Comments Med Refill 06/12/2021 Encounter Details Date Type Department Care Team ([facility] st Contact Info) Description 06/12/2021 Refill [facility] [address] [address] Nan Worthington MD [address] [place] [address] Attention deficit disorder (ADD) without hyperactivity Social [...] hyperactivity documented in this encounter Care Teams Director Informatics Relationship Specialty Start Date End Date Nan Worthington MD [address] [place] [address] PCP - General 11/20/16 documented as of this encounter
--- OUTSIDE RECORDS SUMMARY | 2025-05-26 09:05 | XMS_ITS | Encounter Summary ---
Author Organization [facility] Address [address] [place] [address] Phone Care Team Providers Care Supervisor Sleeping Bag Department Name Role Phone Nan Worthington MD Primary Care Pr ovider Reason for Visit * Reason Onset Date Comments Med Refill 10/26/2020 Encounter Details Date Type Department Care Team ([facility] st Contact Info) Description 10/26/2020 Refill [facility] [address] [address] Nan Worthington MD [address] [place] [address] Attention deficit disorder (ADD) without hyperactivity; Encounter [...] review documented in this encounter Care Teams Supervisor Sleeping Bag Department Relationship Specialty Start Date End Date Nan Worthington MD [address] [place] [phone] PCP - General 11/20/16 documented as of this encounter
--- OUTSIDE RECORDS SUMMARY | 2025-05-26 09:05 | XMS_ITS | Encounter Summary ---
Author Organization [facility] Address [address] [place] [address] Phone Care Team Providers Care Blocker And Polisher Name Role Phone Nan Fink NP Primary Care Provider + [phone] Encounter Details Date Type Department Care Team (Late st Contact Info) Description 05/05/2025 Procedure Pass MRI, [facility] [address] [place] [address] Social History Tobacco Use Types Packs/Day Years [...] high school, GED, job training, learning the Senegalese language, technical skills, or developing parenting skills)? [...] Info) Description 06/20/2025 4:20 PM EDT Telemedicine [facility] - Rheumatology [address] [address] Carlos Galo DO [address] [place] [address] [email or web address] documented as of this encounter Visit Diagnoses Not on filedocumented in this encounter Care Teams Blocker And Polisher Relationship Specialty Start Date End Date Nan Fink NP [address] [place] [address] PCP - General 11/25/20 documented as of this encounter Additional Source Comments The information contained in this document represents components of the legal health record. It is not the complete legal health record.[facility]
--- OUTSIDE RECORDS SUMMARY | 2025-05-26 09:05 | XMS_ITS | Encounter Summary ---
Author Organization [facility] Address [address] [place] [address] Phone Care Team Providers Care Calciner Feeder Name Role Phone Nan Worthington MD Primary Care Pr ovider Reason for Visit * Reason Onset Date Comments Med Refill 08/24/2020 Encounter Details Date Type Department Care Team ([facility] st Contact Info) Description 08/24/[address] [address] Nan Worthington MD [address] [place] [address] Attention deficit disorder (ADD) without hyperactivity; Encounter [...] Telephone Encounter - Toribio Dias LPN - 08/27/2020 8:19 AM EST Phone call to patient He states he takes a total of 75 mg of Zoloft He takes only 50 mg tablets, states a total of 1.5 tablets daily Will send to covering provider to RX Signed Toribio Dias LPN 8:20 AM documented in this encounter Plan of Treatment Not on file documented as of this encounter Visit Diagnoses Diagnosis Attention deficit disorder (ADD) without hyperactivity Encounter for medication review documented in this encounter Care Teams Calciner Feeder Relationship Specialty Start Date End Date Nan Worthington MD [address] [place], [place] [phone] PCP - General 11/20/16 documented as of this encounter
--- OUTSIDE RECORDS SUMMARY | 2025-05-26 09:05 | XMS_ITS | Encounter Summary ---
Author Organization [facility] Address [address] [place] [address] Phone Care Team Providers Care Child Psychiatrist Name Role Phone Nan Worthington MD Primary Care Pr ovider Reason for Visit * Reason Onset Date Comments Med Refill 01/19/2020 Encounter Details Date Type Department Care Team (Late st Contact Info) Description 01/19/2020 Refill [facility] [address] [place] [address] Nan Worthington MD [address] [place] [address] Attention deficit disorder (ADD) without hyperactivity Social [...] hyperactivity documented in this encounter Care Teams Child Psychiatrist Relationship Specialty Start Date End Date Nan Worthington MD [address] [place] [phone] PCP - General 11/20/16 documented as of this encounter
--- OUTSIDE RECORDS SUMMARY | 2025-05-26 09:05 | XMS_ITS | Clinical Summary ---
Author Organization [facility] Address [address] [facility] [address] [place] [phone] Phone Care Team Providers Care Legal Support Analyst Name Role Phone Nan Fink NP Primary Care Provider + [phone] Allergies Active Allergy Reactions Criticality Noted Date Comments Cottonseed Oil 10/16/2019 Medications testosterone enanthate (DELATESTRYL) 200 mg/mL injection Inject into the muscle once a week. Active melatonin 5 mg Tab Take by mouth nightly at bedtime. Active testosterone (TESTOPEL) 75 mg Pllt subcutaneous implant 525 mg once. 3 Active escitalopram oxalate (LEXAPRO) 10 MG tablet Take 10 mg by mouth daily. Active dextroamphetamine -amphetamine (ADDERALL XR) 10 MG 24 hr capsule Take 10 mg by mouth every morning. 3 Active etonogestreL (NEXPLANON) 68 mg Impl Inject 68 mg into the skin Once every 3 years. Active ibuprofen (ADVIL,MOTRIN) 200 MG tablet Take 200 mg by mouth every 8 (eight) hours as needed for pain (specific location in comments). Active hydroxychloroquin e (PLAQUENIL) 200 mg tablet TAKE 2 TABLETS BY MOUTH EVERY DAY 60 tablet 2 5 Active Active Problems No known active problems Encounters Date Type Department Care Team Description 05/19/2025 9:15 AM EDT Telemedicine [facility] [address] [place] [id number] Kei Daniels MD 05/17/2025 8:07 PM EDT - 05/17/2025 11:59 PM EDT Hospital Encounter MRI, [facility] [address] [place] [address] Kei Daniels MD Discharge Disposition: Home or Self Care 05/05/2025 9:30 AM EDT Telemedicine [facility] [address] [place] [address] Kei Daniels MD Bilateral chronic knee pain (Primary Dx); Patellofemoral pain syndrome of both knees; Benign joint hypermobility 05/05/2025 Procedure Pass MRI, [facility] [address] [place] [address] 05/05/2025 Procedure Pass MRI, [facility] [address] [place] [address] 04/21/2025 Refill [facility] - Rheumatology [address] [address] Carlos Galo, DO Medication Refill from Last 3 Months Social History Tobacco Use Types Packs/Day Years Used Date Smoking Tobacco: Never Smokeless Tobacco: Never Tobacco Cessation:Counseling Given: Not Answered Alcohol Use Standard Drinks/Week Comments Never 0 [...] high school, GED, job training, learning the K[place] language, technical skills, or developing parenting skills)? [...] your housing situation today? I have jon moyer 06/21/2024 How many times have you moved [...] or Richards 02/24/2024 7: 58 PM EDT Last Filed Vital Signs Vital Sign Reading Time Taken Comments Blood Pressure 128/76 02/19/2024 8:43 AM EDT Pulse 60 02/19/2024 8:43 AM EDT Temperature 36.3 C (97.3 F) 02/19/2024 8:43 AM EDT Respiratory Rate 16 11/25/2020 10:57 PM EST Oxygen Saturation 99% 02/19/2024 8:43 AM EDT Inhaled Oxygen Concentration - - Weight 79.4 kg (175 lb) 02/19/2024 8:43 AM EDT Height 167.6 cm (5' 6 ) 02/19/2024 8:43 AM EDT Body Mass Index 28.25 02/19/2024 8:43 AM EDT Plan of Treatment Upcoming Encounters Date Type Department Care Team (Late st Contact Info) Description 06/20/2025 4:20 PM EDT Telemedicine [facility] - Rheumatology [address] [address] Carlos Galo DO [address] [place] [id number] [email or web address] Health Maintenance Due Date Last Done Comments DEPRESSION SCREENING 2012 SMOKING Hx and SMOKELESS TOBACCO SCREENING 2013 HPV VACCINES (1 - 3-dose series) 12/08/2015 HEPATITIS C SCREENING 2018 HIV ONE-TIME SCREENING (18-65 YEARS) 2018 INFLUENZA VACCINE (#1) 2025 , 10/07/2023, 08/30/2022, Additional history exists Adult Td,Tdap Booster 06/05/2034 06/05/2024 , 03/05/2021, 04/16/2011 HEPATITIS A VACCINES Aged Out 03/05/2021 No long er eligible based on patient's age to complete this topic COVID-19 VACCINE Completed 06/05/2024, 05/2024, 06/19/2022, Additional history exists HIB VACCINES Aged Out No longer eligi ble based on patient's age to complete this topic MENINGOCOCCAL VACCINES (ACWY) Aged Out No longer eligible based on patient's age to complete this topic MENINGOCOCCAL VACCINES (B) Aged Out N o longer eligible based on patient's age to complete this topic PNEUMOCOCCAL VACCINES (0-49 years) Aged Out No longer eligible based on patient's age to complete this topic Medical Devices Not on file Procedures Procedure Name Priority Date/Time Associated Diagnosis Comments MRI KNEE WITHOUT CONTRAST (RIGHT) Routine 05/17/2025 9:23 PM EDT Bilateral chronic knee pain Patellofemoral pain syndrome of both knees Benign joint hypermobility MRI KNEE WITHOUT CONTRAST (LEFT) Routine 05/17/2025 9:23 PM EDT Bilateral chronic knee pain Patellofemoral pain syndrome of both knees Benign joint hypermobility from Last 3 Months Results * MRI KNEE WITHOUT CONTRAST (RIGHT) (05/17/2025 9:23 PM EDT) Anatomical Region Laterality Modality Knee Right Magnetic Resonan ce 05/18/2025 11:2 6 PM EDT Impressions 05/18/2025 11:37 PM EDT 1. Mild patellofemoral compartment cartilage loss, right greater than left. 2. Bilateral edema in the superolateral aspect of Hoffa's fat pad, consistent with lateral femoral condyle/patellar tendon friction syndrome. 3. 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 Narrative 05/18/2025 11:37 PM EDT MRI KNEE WITHOUT CONTRAST (RIGHT), MRI KNEE WITHOUT CONTRAST (LEFT) Referring clinician's provided indication for this examination in Epic: * Knee pain, chronic, negative xray (Age >= 5y); 24 yo M with hx of hypermobility and chronic bilateral patellofemoral pain - please eval for patellofemoral DJD/inflammation, fat pad impingement TECHNIQUE: Multi-sequence, multi-planar MRI of the knee without intravenous contrast. COMPARISON: XR KNEE 4 OR MORE VIEWS (BILATERAL) FINDINGS: Left knee: Medial Compartment: No meniscal tear. No cartilage defect or subchondral edema. Lateral Compartment: No meniscal tear. No cartilage defect or subchondral edema. Patellofemoral Compartment: Partial-thickness cartilage defect over the medial patellar facet without subchondral marrow edema. Tendons: Quadriceps, patellar, and popliteus tendons are intact. Ligaments: Cruciate ligaments are intact. Collateral ligaments are intact. Bones: Cortically based lesion of the posterior lateral aspect of the distal femur is grossly unchanged compared to prior radiographs, allowing for differences in imaging modality. No surrounding bone marrow edema, cortical erosion or scalloping, pathologic fracture, or soft tissue mass. Constellation of findings is most compatible with a benign fibro-osseous lesion, such as nonossifying fibroma. No fracture or osteonecrosis. Joint: No joint effusion, synovitis, or Lopez's cyst. There is edema in the superolateral aspect of Hoffa's fat pad, consistent with lateral femoral condyle/patellar tendon friction syndrome. Right knee: Medial Compartment: No meniscal tear. No cartilage defect or subchondral edema. Lateral Compartment: No meniscal tear. No cartilage defect or subchondral edema. Patellofemoral Compartment: High-grade fissuring of the cartilage over the median patellar ridge and medial patellar facet with subchondral marrow edema. Tendons: Quadriceps, patellar, and popliteus tendons are intact. Ligaments: Cruciate ligaments are intact. Collateral ligaments are intact. Bones: No fracture, osteonecrosis, or focal lesion. Joint: No joint effusion. Small Lopez's cyst. There is edema in the superolateral aspect of Hoffa's fat pad, consistent with lateral femoral condyle/patellar tendon friction syndrome. Procedure Note Collin Casillas MD - 05/18/2025 MRI KNEE WITHOUT CONTRAST (RIGHT), MRI KNEE WITHOUT CONTRAST (LEFT) Referring clinician's provided indication for this examination in Epic: *Knee pain, chronic, negative xray (Age >= 5y); 24 yo M with hx ofhypermobility and chronic bilateral patellofemoral pain - please eval forpatellofemoral DJD/inflammation, fat pad impingement TECHNIQUE: Multi-sequence, multi-planar MRI of the knee withoutintravenous contrast. COMPARISON: XR KNEE 4 OR MORE VIEWS (BILATERAL) FINDINGS: Left knee: Medial Compartment: No meniscal tear. No cartilage defect or subchondraledema. Lateral Compartment: No meniscal tear. No cartilage defect or subchondraledema. Patellofemoral Compartment: Partial-thickness cartilage defect over themedial patellar facet without subchondral marrow edema. Tendons: Quadriceps, patellar, and popliteus tendons are intact. Ligaments: Cruciate ligaments are intact. Collateral ligaments areintact. Bones: Cortically based lesion of the posterior lateral aspect of thedistal femur is grossly unchanged compared to prior radiographs, allowingfor differences in imaging modality. No surrounding bone marrow edema,cortical erosion or scalloping, pathologic fracture, or soft tissue mass.Constellation of findings is most compatible with a benign fibro-osseouslesion, such as nonossifying fibroma. No fracture or osteonecrosis. Joint: No joint effusion, synovitis, or Lopez's cyst. There is edema inthe superolateral aspect of Hoffa's fat pad, consistent with lateralfemoral condyle/patellar tendon friction syndrome. Right knee: Medial Compartment: No meniscal tear. No cartilage defect or subchondraledema. Lateral Compartment: No meniscal tear. No cartilage defect or subchondraledema. Patellofemoral Compartment: High-grade fissuring of the cartilage over themedian patellar ridge and medial patellar facet with subchondral marrowedema. Tendons: Quadriceps, patellar, and popliteus tendons are intact. Ligaments: Cruciate ligaments are intact. Collateral ligaments areintact. Bones: No fracture, osteonecrosis, or focal lesion. Joint: No joint effusion. Small Lopez's cyst. There is edema in thesuperolateral aspect of Hoffa's fat pad, consistent with lateral femoralcondyle/patellar tendon friction syndrome. IMPRESSION: 1. Mild patellofemoral compartment cartilage loss, right greater thanleft. 2. Bilateral edema in the superolateral aspect of Hoffa's fat pad,consistent with lateral femoral condyle/patellar tendon frictionsyndrome. 3. Findings consistent with nonossifying fibroma of the left distalfemur, grossly unchanged. us Kei Daniels MD IMG MR EXTREMITY Final Result * MRI KNEE WITHOUT CONTRAST (LEFT) (05/17/2025 9:23 PM EDT) Anatomical Region Laterality Modality Knee Left Magnetic Resonan ce 05/18/2025 11:2 6 PM EDT Impressions 05/18/2025 11:37 PM EDT 1. Mild patellofemoral compartment cartilage loss, right greater than left. 2. Bilateral edema in the superolateral aspect of Hoffa's fat pad, consistent with lateral femoral condyle/patellar tendon friction syndrome. 3. 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 Narrative 05/18/2025 11:37 PM EDT MRI KNEE WITHOUT CONTRAST (RIGHT), MRI KNEE WITHOUT CONTRAST (LEFT) Referring clinician's provided indication for this examination in Epic: * Knee pain, chronic, negative xray (Age >= 5y); 24 yo M with hx of hypermobility and chronic bilateral patellofemoral pain - please eval for patellofemoral DJD/inflammation, fat pad impingement TECHNIQUE: Multi-sequence, multi-planar MRI of the knee without intravenous contrast. COMPARISON: XR KNEE 4 OR MORE VIEWS (BILATERAL) FINDINGS: Left knee: Medial Compartment: No meniscal tear. No cartilage defect or subchondral edema. Lateral Compartment: No meniscal tear. No cartilage defect or subchondral edema. Patellofemoral Compartment: Partial-thickness cartilage defect over the medial patellar facet without subchondral marrow edema. Tendons: Quadriceps, patellar, and popliteus tendons are intact. Ligaments: Cruciate ligaments are intact. Collateral ligaments are intact. Bones: Cortically based lesion of the posterior lateral aspect of the distal femur is grossly unchanged compared to prior radiographs, allowing for differences in imaging modality. No surrounding bone marrow edema, cortical erosion or scalloping, pathologic fracture, or soft tissue mass. Constellation of findings is most compatible with a benign fibro-osseous lesion, such as nonossifying fibroma. No fracture or osteonecrosis. Joint: No joint effusion, synovitis, or Lopez's cyst. There is edema in the superolateral aspect of Hoffa's fat pad, consistent with lateral femoral condyle/patellar tendon friction syndrome. Right knee: Medial Compartment: No meniscal tear. No cartilage defect or subchondral edema. Lateral Compartment: No meniscal tear. No cartilage defect or subchondral edema. Patellofemoral Compartment: High-grade fissuring of the cartilage over the median patellar ridge and medial patellar facet with subchondral marrow edema. Tendons: Quadriceps, patellar, and popliteus tendons are intact. Ligaments: Cruciate ligaments are intact. Collateral ligaments are intact. Bones: No fracture, osteonecrosis, or focal lesion. Joint: No joint effusion. Small Lopez's cyst. There is edema in the superolateral aspect of Hoffa's fat pad, consistent with lateral femoral condyle/patellar tendon friction syndrome. Procedure Note Collin Casillas MD - 05/18/2025 MRI KNEE WITHOUT CONTRAST (RIGHT), MRI KNEE WITHOUT CONTRAST (LEFT) Referring clinician's provided indication for this examination in Epic: *Knee pain, chronic, negative xray (Age >= 5y); 24 yo M with hx ofhypermobility and chronic bilateral patellofemoral pain - please eval forpatellofemoral DJD/inflammation, fat pad impingement TECHNIQUE: Multi-sequence, multi-planar MRI of the knee withoutintravenous contrast. COMPARISON: XR KNEE 4 OR MORE VIEWS (BILATERAL) FINDINGS: Left knee: Medial Compartment: No meniscal tear. No cartilage defect or subchondraledema. Lateral Compartment: No meniscal tear. No cartilage defect or subchondraledema. Patellofemoral Compartment: Partial-thickness cartilage defect over themedial patellar facet without subchondral marrow edema. Tendons: Quadriceps, patellar, and popliteus tendons are intact. Ligaments: Cruciate ligaments are intact. Collateral ligaments areintact. Bones: Cortically based lesion of the posterior lateral aspect of thedistal femur is grossly unchanged compared to prior radiographs, allowingfor differences in imaging modality. No surrounding bone marrow edema,cortical erosion or scalloping, pathologic fracture, or soft tissue mass.Constellation of findings is most compatible with a benign fibro-osseouslesion, such as nonossifying fibroma. No fracture or osteonecrosis. Joint: No joint effusion, synovitis, or Lopez's cyst. There is edema inthe superolateral aspect of Hoffa's fat pad, consistent with lateralfemoral condyle/patellar tendon friction syndrome. Right knee: Medial Compartment: No meniscal tear. No cartilage defect or subchondraledema. Lateral Compartment: No meniscal tear. No cartilage defect or subchondraledema. Patellofemoral Compartment: High-grade fissuring of the cartilage over themedian patellar ridge and medial patellar facet with subchondral marrowedema. Tendons: Quadriceps, patellar, and popliteus tendons are intact. Ligaments: Cruciate ligaments are intact. Collateral ligaments areintact. Bones: No fracture, osteonecrosis, or focal lesion. Joint: No joint effusion. Small Lopez's cyst. There is edema in thesuperolateral aspect of Hoffa's fat pad, consistent with lateral femoralcondyle/patellar tendon friction syndrome. IMPRESSION: 1. Mild patellofemoral compartment cartilage loss, right greater thanleft. 2. Bilateral edema in the superolateral aspect of Hoffa's fat pad,consistent with lateral femoral condyle/patellar tendon frictionsyndrome. 3. Findings consistent with nonossifying fibroma of the left distalfemur, grossly unchanged. Kei Daniels MD IM MR EXTREMITY Final Result from Last 3 Months [place] [address] [place] [address] PPO EPO [facility] PPO [facility]PO [facility] PPO EPO PPO EPO PPO EPO [facility] PPO EPO [facility] PPO EPO [facility] PPO EPO Care Teams Legal Support Analyst Relationship Specialty Start Date End Date Nan Fink NP [address] [place] [phone] PCP - General 11/25/20 Additional Source Comments The information contained in this document represents components of the legal health record. It is not the complete legal health record.[facility]
== END 2025-05-26 09:09 | disposition home or self-care (01) ==
LOC: HO.HMCFM 08:27
PROVIDERS: PCP Physician Assistant Medical; Visit Provider Physician Assistant Medical
DX: Z00.00 Encounter for general adult medical examination without abnormal findings (principal); K21.9 Gastro-esophageal reflux disease without esophagitis

== ENCOUNTER 2025-06-23 13:42 | Outpatient (AMB) | payer BC, SELFPAY ==
--- NOTE | 2025-06-23 13:46 | A.OFFVIS_ITS ---
Intake Visit Reasons: recheck reflux Allergies marijuana (cannabis) Allergy (Verified 05/26/25 08:34) Hives Seasonal Allergies Allergy (Verified 05/26/25 08:34) Congestion cotton seed oil Allergy (Unknown, Uncoded 05/26/25 08:32) Red hot Lump on skin HPI Comments Details: This is a 23-year-old transgender male with a past medical history of ADHD, depression with anxiety an unspecified inflammatory polyarthropathy presenting for follow up. The patient's pronouns are he/him/they/them. ADHD, depression with anxiety-followed by therapist and psychiatrist. Taking Adderall 15 mg daily and Lexapro 10 mg daily. No SI or HI. The patient is followed by [facility] end[facility]. He has a testopel implant. The patient underwent top surgery in 2019. Patient is followed by Rheumatology and Orthoepedics (Dr. Daniels) at [facility]. The patient takes Plaquenil. Seen by PT for bilateral knee and ankle pain. Patient has hypermobility issues and inflammatory polyarthropathy. The patient endorses heartburn for several years, gradually worsening. Takes tums multiple at least once per day which temporarily alleviate symptoms. Spicy and acidic foods make it worse. No regular NSAID use. No weight loss and abdominal pain. Denies coffee ground emesis. Rarely drinks alcohol. Patient reported last tetanus immunization was 2023. Flu vaccine recommended. ROS: Constitutional: No unexplained weight loss, fever, chills or night sweats. Eyes: No vision changes, blurry vision, double vision, eye pain, eye redness, eye discharge. ENT: No hearing loss, sneezing, congestion, runny nose or sore throat. Respiratory: No shortness of breath, cough or sputum production. Cardiovascular: No chest pain, chest pressure or chest discomfort. No palpitations or pedal edema. Gastrointestinal: No anorexia, nausea, vomiting, diarrhea, hematemesis or black tarry stools. Genitourinary: No dysuria, hematuria, urinary frequency. Neurologic: No headache, dizziness, syncope, unilateral weakness, ataxia, numbness or tingling in the extremities. Musculoskeletal: See HPI Hematologic/Lymphatics: No bleeding or bruising. No painful lymph nodes. Skin: No rash Endocrine: No cold or heat intolerance. No polyuria or polydipsia. Psychiatric: See HPI. No SI or HI.. Physical exam: Constitutional: Alert, in no distress. Head: Normocephalic. Eyes: Pupils are equal, round and reactive to light. Extraocular muscles intact. Ear, Nose and Throat: Canals clear. TMs normal. Normal nasal mucosa. No nasal discharge. No oral lesions. Neck: Supple, Full range of motion. No lymphadenopathy. No palpable thyroid masses. Respiratory: Clear to auscultation. Cardiovascular: S1 S2 regular. No murmurs. Gastrointestinal: Abdomen soft, non-tender, non-distended. Normal bowel sounds. No palpable masses. No rebound or guarding. Neurologic: No focal neurological deficits. Symmetric patellar reflexes. Moves all extremities spontaneously. Sensation intact bilaterally. Skin: No rashes or lesions. Musculoskeletal: No deformities. Extremities: Warm and well perfused. No clubbing, cyanosis or edema. Psychiatric: Normal mood and affect [facility] Medical History (Updated 05/31/25 @ 09:06 by AGUSTIN De Leon) LFT elevation Screening for cardiovascular condition GERD (gastroesophageal reflux disease) Routine physical examination Unspecified inflammatory polyarthropathy ADHD Transgender Depression with anxiety Surgical History (Updated 05/18/24 @ 08:54 by AGUSTIN De Leon) H/O breast surgery [place] teeth extracted Family History (Updated 05/26/25 @ 08:35 by Gay Zamora MA) Father Hypertension Maternal Aunt Breast cancer Paternal Grandfather Heart attack Social History (Updated 05/26/25 @ 08:36 by Gay Zamora MA) Alcohol intake: current Patient Tobacco Use Status: Never used Tobacco e-Cigarette/Vaping Use: Never Used Second Hand Smoke Exposure: No service: No Current occupational status: employed 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
--- NOTE | 2025-06-23 13:48 | MHC.PC.OV ---
Vital Signs 06/23/25 13:50 Height 5 ft 6.5 in Weight 183 lb BMI 29.1 BP 100/60 Blood Pressure Location Lt brachial Position Sitting Pulse 98 Pulse Source Pulse Oximeter Temp 97.9 F Temp Source Temporal Artery Scan Pulse Oximetry (%) 99 Oxygen Delivery Method Room Air Intake Visit Reasons: recheck reflux Intake Note: Laura presents in the office today for a follow up to Acid Reflux Allergies marijuana (cannabis) Allergy (Verified 06/23/25 13:47) Hives Seasonal Allergies Allergy (Verified 06/23/25 13:47) Congestion cotton seed oil Allergy (Unknown, Uncoded 06/23/25 13:47) Red hot Lump on skin Tobacco use date assessed: 06/23/25 Dental Screening Dental Screen Date: 06/23/25 Did you have a dental visit in the last 12 months?: Yes Did you have a dental problem in the last 6 months where you did not have access to dental care?: No Was dental information given to patient?: Patient has dentist HPI HPI Comments History of Present Illness Details 24-year-old transgender male with a past medical history of ADHD and depression with anxiety presents for follow up of GI issues. At his recent physical exam we discussed acid reflux. Patient attempted to submit stool testing for Helicobacter pylori however the sample could not be tested. White blood cell count was essentially normal at 4.6. No anemia. AST mildly elevated at 39 and ALT and alkaline phosphatase normal. Patient's pancreatic enzymes are also normal. Patient was started on pantoprazole 40 mg daily with complete resolution of symptoms a couple of days after initiating the medication. Patient is also trying to avoid spicy or foods but does still have some acidic foods like tomato sauce. Patient was referred to Gastroenterology due to the long duration of the symptoms over many years, and he is in the process of scheduling that appointment. ROS: Constitutional: No unexplained weight loss, fever, chills, fatigue or night sweats. Gastrointestinal: No anorexia, nausea, vomiting or diarrhea. No abdominal pain or blood in stool. Physical exam: Constitutional: Alert, in no distress. Respiratory: Clear to auscultation. Cardiovascular: S1 S2 regular. No murmurs Gastrointestinal: Abdomen soft, non-tender, non-distended. Normal bowel sounds. No palpable masses. Psychiatric: Normal mood and affect [facility] Medical History (Updated 06/23/25 @ 14:08 by AGUSTIN De Leon) LFT elevation Screening for cardiovascular condition GERD (gastroesophageal reflux disease) Routine physical examination Unspecified inflammatory polyarthropathy ADHD Transgender Depression with anxiety Surgical History (Updated 05/18/24 @ 08:54 by AGUSTIN De Leon) H/O breast surgery [place] teeth extracted Family History Father Hypertension Maternal Aunt Breast cancer Paternal Grandfather Heart attack Social History (Updated 06/23/25 @ 13:49 by Gay Zamora CMA) Alcohol intake: current Patient Tobacco Use Status: Never used Tobacco e-Cigarette/Vaping Use: Never Used Second Hand Smoke Exposure: No Substance Use Type: Marijuana service: No Current occupational status: employed 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, 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 Current occupational exposures/hazards: No Cognitive needs: No Hearing needs: No Vision needs: No Questionnaire Thrive Questionnaire Date Thrive assessed: 05/26/25 I am a: Patient What is your living situation today?: I have a steady place to live Within the past 12 months, did the food you bought not last and you didn't have the money to get more?: Sometimes True Within the past 12 months, did you worry whether your food would run out before you got money to buy more?: Sometimes True Do you have trouble paying for medicines?: No Do you have trouble getting transportation to medical appointments?: No Do you have trouble paying your heating and electricity bill?: No Do you have trouble taking care of your child, family member or friend?: No Do you have trouble with day-to-day activities such as bathing, preparing meals, shopping, managing finances, etc.?: No Are you currently unemployed and looking for a job?: No Are you interested in more education?: Yes Please select the resources that you would like help with: None Currently or been in a relationship where the following occur: I choose not to answer THRIVE Score: 2 AMERICA-7 AMB Questionnaire AMERICA-7 Date AMERICA - 7 assessed: 05/26/25 Source: Developed by Drs. James Bernal, Lyubov Mobley, Kailash Thomas and colleagues, with an educational ivory from [employer]. Physical exam (Primary Care) Vital Signs: Last Vital Signs Temp 97.9 F 09/25/25 13:50 Pulse 98 06/23/25 13:50 BP 100/60 06/23/25 13:50 Pulse Ox 99 06/23/25 13:50 Oxygen Delivery Method Room Air 06/23/25 13:50 BMI result Body Mass Index 29.1 Tobacco/Smoking Status: Tobacco use Status Tobacco use date assessed 06/23/25 06/23/25 13:52 Patient Tobacco Use Status Never used Tobacco 06/23/25 13:52 e-Cigarette/Vaping Use Never Used 06/23/25 13:52 Thrive Assessment: Date of Thrive Assessment Date Thrive assessed 05/26/25 06/23/25 13:52 Currently or been in a relationship where the following occur: I choose not to answer Coding Level of Care Code Est Pt Level 4 (57705) Complex EM visit Add On G2211 Diagnoses LFT elevation R79.89 Gastroesophageal reflux disease without esophagitis K21.9 Esophagitis presence: without esophagitis Assessment & Plan Assessment & Plan (1) LFT elevation: Code(s): R79.89 - Other specified abnormal findings of blood chemistry Category: Medical Plan: Repeat labs today. (2) GERD (gastroesophageal reflux disease): Code(s): K21.9 - Gastro-esophageal reflux disease without esophagitis Category: Medical Qualifiers: Esophagitis presence: without esophagitis Qualified Code(s): K21.9 - Gastro-esophageal reflux disease without esophagitis Plan: Continue Protonix 40 mg daily for 2 weeks, then decrease to 20 mg daily for 2 weeks, then decrease to 20 mg every other day for 2 weeks, then stop the medication. If you develop recurrent acid reflux call the office. At that time I would recommend collecting a new sample to test for H pylori once the patient was off PPI for at least 2 weeks. Continue avoidance of spicy and acidic foods. Plan Schedule appointment with Gastroenterology. Orders: Orders Aspartate Amino Transferase Today R79.89 - Other specified abnormal findings of blood chemistry Complete Blood Count Auto Diff Today R79.89 - Other specified abnormal findings of blood chemistry Alanine Aminotransferase Today R7.89 - Other specified abnormal findings of blood chemistry Medications: New pantoprazole Replaces pantoprazole 40 mg daily. 20 mg PO DAILY 90 tabs 0RF Discontinued pantoprazole Discontinued Reason: Doctor's Order 40 mg PO DAILY 90 tabs 0RF Patient Instructions: Continue Protonix 40 mg daily for 2 weeks, then decrease to 20 mg daily for 2 weeks, then decrease to 20 mg every other day for 2 weeks, then stop the medication. If you develop recurrent acid reflux call the office.
[2025-06-23 13:50] VITALS: BP 100/60; PULSE 98; TEMP 36.6; O2SAT 99; BMI 29.1
--- OUTSIDE RECORDS SUMMARY | 2025-06-23 18:13 | XMS_ITS | Encounter Summary ---
Author Organization [facility] Address [address] [place] [address] Phone Care Team Providers Care Medicaid Biller Name Role Phone Nan Worthington MD Primary Care Pr ovider Encounter Details Date Type Department Care Team (Late st Contact Info) Description 11/27/2017 Conversion Encounter [facility] [address] [place] [address] Nan Worthington MD [address] [place] [address] Social History Tobacco Use Types Packs/Day Years [...] on filedocumented in this encounter Care Teams Medicaid Biller Relationship Specialty Start Date End Date Nan Worthington MD [address] [place] [address] PCP - General 11/20/16 documented as of this encounter
--- OUTSIDE RECORDS SUMMARY | 2025-06-23 18:13 | XMS_ITS | Clinical Summary ---
Author Organization [facility] Address [address] [place] [address] Phone Care Team Providers Care Bomb Loader Name Role Phone Nan Worthington MD Primary [...] 2 - Risk 2-dose series) 09/04/2021 03/05/2021 Influenza Vaccines (#1) 2025 10/07/19 24, 08/30/2022, 07/24/2021, Additional history exists COVID-19 Vaccine ( season) 2025 10/07/2023, 06/19/2022, 09/04/2021, Additional history exists DTaP,Tdap,and Td Vaccines (8 [...] Completed 03/24/2019, 02/16/2019 Procedures * Due to [place] Sugar[employer] law, this organization might not be sharing sensitive test results. Procedure Name Priority Date/Time Associated Diagnosis Comments CHLAMYDIA AND GONORRHEA, AMPLIFIED Routine 03/10/2023 10:40 AM EDT Screen for sexually transmitted diseases from Last 3 Months or Most Recently Relevant to Health Maintenance Results * Due to [place] [employer] law, this organization might not be sharing sensitive test results. * Chlamydia and Gonorrhea, Amplified (03/10/2023 10:40 AM EDT) Chlamydia trachomatis RNA, TMA NOT DETECTED NOT DETECTED [employer] [place] [employer] Neisseria gonorrhoeae, AMANDA NOT DETECTED NOT DETECTED [facility] Comment VANCL Comment: The analytical performance characteristics of this assay, when used to test SurePath(TM) specimens have been determined by [employer]. The modifications have not been cleared or approved by the FDA. This assay has been validated pursuant to the CLIA regulations and is used for clinical purposes. For additional information, please refer to https://education.OhmData/faq/CIT445 (This link is being provided for information/ educational purposes only.) Urine (Urine) 03/10/2023 10: 40 AM EDT 03/11/2023 12:03 AM EDT Narrative Resulting Agency Comment Performing Organization Information: Site ID: [id number] Name: [facility] Address: [address] [place] [id number] Director: Cecilia Martini Nan Worthington MD LAB MICROBIOLOGY - GENERAL ORDERABLES Final Result [facility] from Last 3 Months or Most Recently Relevant to Health Maintenance Care Teams Bomb Loader Relationship Specialty Start Date End Date Nan Worthington MD [address] [place] [address] [id number] [facility] - General 11/20/16
--- OUTSIDE RECORDS SUMMARY | 2025-06-23 18:13 | XMS_ITS | Encounter Summary ---
Author Organization [facility] Address [address] [place] [address] Phone Care Team Providers Care Production Engine Repairer Name Role Phone Nan Hutchins MD Primary Care Provider Nan Hutchins MD Unavailable Nan Hutchins MD Unavailable Encounter Details Date Type Department Care Team (Late st Contact Info) Description 02/19/2024 Abstract Barb Conversion ProviderElis MD [address] [place] [address] [phone] Laboratory test (Primary Dx) Social History Tobacco [...] Description 06/29/2025 2:00 PM EDT Office Visit [facility] Gynecology [address] [place] [phone] Gema Bond MD [address] [place] [phone] documented as of this encounter Visit Diagnoses Diagnosis Laboratory test- Primary Laboratory examination, unspecified documented in this encounter Care Teams Production Engine Repairer Relationship Specialty Start Date End Date Nan Hutchins MD [address] [place] [phone] PCP - General 02/16/24 Nan Hutchins MD [address] [place] [address] PCP - Clinical PCP 09/01/17 Nan Hutchins MD [address] [place] [address] PCP - Insurance PCP 09/01/17 documented as of this encounter
--- OUTSIDE RECORDS SUMMARY | 2025-06-23 18:13 | XMS_ITS | Encounter Summary ---
Author Organization [facility] Address [address] [place] [address] Phone Care Team Providers Care Pole Incisor Operator Name Role Phone Nan Worthington MD Primary Care Pr ovider Reason for Visit * Reason Comments Med Refill Encounter Details Date Type Department Care Team ([facility] st Contact Info) Description 11/14/[address] [address] Nan Worthington MD [address] [place] [address] Other depression Social History Tobacco Use Types [...] depression documented in this encounter Care Teams Pole Incisor Operator Relationship Specialty Start Date End Date Nan Worthington MD [address] [place] [phone] PCP - General 11/20/16 documented as of this encounter
--- OUTSIDE RECORDS SUMMARY | 2025-06-23 18:13 | XMS_ITS | Encounter Summary ---
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 (Primary [...] Description 06/29/2025 2:00 PM EDT Office Visit [facility] Gynecology [address] [place] [address] Gema Bond MD [address] [place] [address] Scheduled Orders Name Type Priority Associated Diagnoses [...] Primary documented in this encounter Care Teams Flooring Salesperson Relationship Specialty Start Date End Date Nan Hutchins MD [address] [place] [phone] PCP - General 02/16/24 Nan Hutchins MD [address] [place] [address] PCP - Clinical PCP 09/01/17 Nan Hutchins MD [address] [place] [address] PCP - Insurance PCP 09/01/17 documented as of this encounter
--- OUTSIDE RECORDS SUMMARY | 2025-06-23 18:13 | XMS_ITS | Encounter Summary ---
Author Organization [facility] Address [address] [place] [address] Phone Care Team Providers Care Intern Architect Name Role Phone Nan Worthington MD Primary Care Pr ovider Reason for Visit * Reason Onset Date Comments Med Refill 11/13/2022 Encounter Details Date Type Department Care Team ([facility] st Contact Info) Description 11/13/2022 Refill [facility] [address] [address] Nan Worthington MD [address] [place] [address] Other depression Social History Tobacco Use Types [...] to schedule med check. Looks like multiple [employer] messages have been sent regarding need to [...] depression documented in this encounter Care Teams Intern Architect Relationship Specialty Start Date End Date Nan Worthington MD [address] [place] [address] PCP - General 11/20/16 documented as of this encounter
--- OUTSIDE RECORDS SUMMARY | 2025-06-23 18:13 | XMS_ITS | Encounter Summary ---
Author Organization [facility] Address [address] [place] [address] Phone Care Team Providers Care Enterprise Security Architect Name Role Phone Nan Worthington MD Primary Care Pr ovider Reason for Visit * Reason Comments Med Refill Encounter Details Date Type Department Care Team ([facility] st Contact Info) Description 10/23/2021 Refill [facility] [address] [address] Robel Roblero MD [address] [place] [address] Other depression Social History Tobacco Use Types [...] 02/23/2020 Missing School or Work Answer Date Nesotr rded Did you or your child miss [...] depression documented in this encounter Care Teams Enterprise Security Architect Relationship Specialty Start Date End Date Nan Worthington MD [address] [place] [phone] PCP - General 11/20/16 documented as of this encounter
--- OUTSIDE RECORDS SUMMARY | 2025-06-23 18:13 | XMS_ITS | Clinical Summary ---
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 Immunizations Immunization Administration Dates Next Due Hep A, Adult 03/05/2021 Influenza, Unspecified 08/30/2022,2020,07/11/2020,2018 Moderna SARS-CoV-2 Bivalent Booster 12+ 06/19/2022 Pfizer Purple Cap SARS-CoV-2 09/04/2021,02/12/20 21,01/21/2021 Td (adult), unspecified 03/05/2021 Family History Medical [...] Description 06/29/2025 2:00 PM EDT Office Visit [facility] Gyne[facility] 2 [place] [phone] Gema Bond MD [address] [place] [address] Health Maintenance Due Date Last Done Comments Hepatitis C Screening 2018 Influenza Vaccine (#1) 2025 , 07/24/2021, 07/11/2020, Additional history exists Anemia Screening 10/31/2028 10/31/2023, 10/2023, 06/11/2023, Additional history exists DTaP/Tdap/Td Vaccines (8 - [...] 02/28, 01/17/2016 Meningococcal Vaccine Completed 01/22/2017, 012 Meningococcal B Vaccine Completed 03/24/2019, 02/16 Hepatitis A Vaccines Aged Out 03/05/2021 No long er eligible based on patient's age to complete this topic HIV Screening Completed 10/11/2021 Rotavirus Vaccines Aged Out No longer eligible based on patient's age to complete this topic Procedures Procedure Name Priority Date/Time Associated Diagnosis Comments HEMATOCRIT Routine 10/31/2023 3:00 PM EST RAPID HIV 1 AND 2 SCREEN Routine 10/11/2021 9:03 AM EST from Last 3 Months or Most Recently Relevant to Health Maintenance Results * (ABNORMAL) Hematocrit, Blood (10/31/2023 3:00 PM EST) Hematocrit 44.7(H) 35.5 - 44.6 % [facility] 10/31/2023 3:00 PM EST 10/31/2023 8:09 PM EST Ledy Garcia CNP LAB BLOOD [place] [address], [place] [phone] * HIV-1/2 Combo Ag/Ab w/ Reflex Confirmation (10/11/2021 9:03 AM EST) HIV-1/2 Combo Antigen/Antibo dy Nonreactive [facility] Comment: 1.) (Medium Importance) Result Comment [...] 9:03 AM EST 10/11/2021 2:48 PM EST Yazmin Gastelum MD LAB BLOOD ORDERABLES Final Resul t [address] [address], [place] [phone] from Last 3 Months or Most Recently Relevant to Health Maintenance Insurance [employer] Member Subscriber Plan / Payer (Ef fective 2018-Present) Name:KunalLaura Relation to Subscriber:Child Name:MICHAEL HOPE Date of :1912 Address: [address] [place] [address] Payer ID:[id number] (NAIC) Type:Not on file Address: [address] [facility] [employer] Member Subscriber Plan / Payer (Ef fective 2018-Present) Name:Laura Hope Relation to Subscriber:Child Name:MICHAEL HOPE Date of :1912 Address: [address] [place] [address] Payer ID:[id number] (NAIC) Type:Not on file Address: [address] [facility] Care Teams Emergency Vehicle Operator Relationship Specialty Start Date End Date Nan Hutchins MD [address] [place] [phone] PCP - General 02/16/24 Nan Hutchins MD [address] [place] [phone] PCP - Clinical PCP 09/01/17 Nan Hutchins MD [address] [place] [phone] PCP - Insurance PCP 09/01/17
--- OUTSIDE RECORDS SUMMARY | 2025-06-23 18:13 | XMS_ITS | Encounter Summary ---
Author Organization [facility] Address [address] [place] [address] Phone Care Team Providers Care Summer Child Caregiver Name Role Phone Nan Worthington MD Primary Care Pr ovider Reason for Visit * Reason Onset Date Comments Med Refill 04/07/2020 Encounter Details Date Type Department Care Team ([facility] st Contact Info) Description 04/07/2020 Refill [facility] [address] [address] Nan Worthington MD [address] [place] [address] Attention deficit disorder (ADD) without hyperactivity; Encounter [...] review documented in this encounter Care Teams Summer Child Caregiver Relationship Specialty Start Date End Date Nan Worthington MD [address] [place] [address] PCP - General 11/20/16 documented as of this encounter
--- OUTSIDE RECORDS SUMMARY | 2025-06-23 18:13 | XMS_ITS | Encounter Summary ---
Author Organization [facility] Address [address] [place] [address] Phone Care Team Providers Care Hand Embroiderer Name Role Phone Nan Fink NP Primary Care Provider + [phone] Encounter Details Date Type Department Care Team (Late st Contact Info) Description 05/05/2025 Procedure Pass MRI, [facility] [address] [place] [address] Social History Tobacco Use Types Packs/Day Years [...] high school, GED, job training, learning the [place] language, technical skills, or developing parenting skills)? [...] on filedocumented in this encounter Care Teams Hand Embroiderer Relationship Specialty Start Date End Date Nan Fink NP [address] [place] [address] PCP - General 11/25/20 documented as of this encounter Additional Source Comments The information contained in this document represents components of the legal health record. It is not the complete legal health record.[facility]
--- OUTSIDE RECORDS SUMMARY | 2025-06-23 18:13 | XMS_ITS | Encounter Summary ---
Author Organization [facility] Address [address] [place] [address] Phone Care Team Providers Care State Wildlife Officer Name Role Phone Nan Worthington MD Primary Care Pr ovider Reason for Visit * Reason Onset Date Comments Med Refill 11/28/2021 Encounter Details Date Type Department Care Team ([facility] st Contact Info) Description 11/28/2021 Refill [facility] [address] [address] Nan Worthington MD [address] [place] [address] Attention deficit disorder (ADD) without hyperactivity Social [...] hyperactivity documented in this encounter Care Teams State Wildlife Officer Relationship Specialty Start Date End Date Nan Worthington MD [address] [place] [phone] PCP - General 11/20/16 documented as of this encounter
--- OUTSIDE RECORDS SUMMARY | 2025-06-23 18:13 | XMS_ITS | Encounter Summary ---
Author Organization [facility] Address [address] [facility] [address] [place] [address] Phone Care Team Providers Care Assembler Surgical Garment Name Role Phone Nan Fink NP Primary Care Provider + [phone] Encounter Details Date Type Department Care Team (Late st Contact Info) Description 04/24/2024 Ancillary Orders [facility] [place] [address] [place] [address] Carlos Galo, DO [address] [place] [address] [email or web address] Arthralgia, unspecified joint (Primary Dx) Social History [...] on file documented as of this encounter Results * [...] acute fracture. IMPRESSION: No acute osseous abnormality. Carlos Galo DO IMG XR LOWER EXTREMITY Antonette l Result documented in this encounter Visit Diagnoses Diagnosis Arthralgia, unspecified joint Arthralgia, unspecified joint- Primary documented in this encounter Care Teams Assembler Surgical Garment Relationship Specialty Start Date End Date Nan Fink NP [address] [place] [phone] PCP - General 11/25/20 documented as of this encounter Additional Source Comments The information contained in this document represents components of the legal health record. It is not the complete legal health record.[facility]
--- OUTSIDE RECORDS SUMMARY | 2025-06-23 18:13 | XMS_ITS | Encounter Summary ---
Author Organization [facility] Address [address] [place] [address] Phone Care Team Providers Care Insulation Manager Name Role Phone Nan Worthington MD Primary Care Pr ovider Reason for Visit * Reason Onset Date Comments Med Refill 03/02/2022 Encounter Details Date Type Department Care Team ([facility] st Contact Info) Description 03/02/2022 Refill [facility] [address] [address] Nan Worthington MD [address] [place] [address] Attention deficit disorder (ADD) without hyperactivity Social [...] hyperactivity documented in this encounter Care Teams Insulation Manager Relationship Specialty Start Date End Date Nan Worthington MD [address] [place] [address] PCP - General 11/20/16 documented as of this encounter
--- OUTSIDE RECORDS SUMMARY | 2025-06-23 18:13 | XMS_ITS | Encounter Summary ---
Author Organization [facility] Address [address] [facility] [address] [place] [address] Phone Care Team Providers Care Tin Tie Machine Operator Automatic Name Role Phone Nan Fink NP Primary Care Provider + [phone] Encounter Details Date Type Department Care Team (Late st Contact Info) Description 11/25/2020 Procedure Pass [facility], Ct Scan - [address] [address] Social History Tobacco Use Types Packs/Day Years [...] 7:36 PM EST Gwen Cochran RN * [facility] Suicide Severity Rating Scale (Screener/Recent Self-Report) Question Answer Date of Assessment Author 1. Wish to be (Past 1 Month) No 11/25/2020 7:36 PM EST Gwen Cochran, DANN 2. Non-Specific Active Suicidal Thoughts (Past 1 Month) No 11/25/2020 7:36 PM EST Gwen Cochran, DANN 6. Suicidal Behavior (Lifetime) Yes 11/25/2020 7:36 PM Gwen Valencia, DANN 6. Suicidal Behavior (3 Months) No 11/25/2020 7:36 PM Gwen Valencia RN documented as of this encounter Plan of Treatment Not on file documented as of this encounter Visit Diagnoses Not on filedocumented in this encounter Care Teams Tin Tie Machine Operator Automatic Relationship Specialty Start Date End Date Nan Fink NP [address] [place] [address] PCP - General 11/25/20 documented as of this encounter Additional Source Comments The information contained in this document represents components of the legal health record. It is not the complete legal health record.[facility]
--- OUTSIDE RECORDS SUMMARY | 2025-06-23 18:13 | XMS_ITS | Encounter Summary ---
Author Organization [facility] Address [address] [place] [address] Phone Care Team Providers Care Open Developer Operator Name Role Phone Nan Worthington MD Primary Care Pr ovider Reason for Visit * Reason Onset Date Comments Med Refill 11/28/2021 Encounter Details Date Type Department Care Team ([facility] st Contact Info) Description 11/28/2021 Refill [facility] [address] [address] Nan Worthington MD [address] [place] [address] Attention deficit disorder (ADD) without hyperactivity Social [...] hyperactivity documented in this encounter Care Teams Open Developer Operator Relationship Specialty Start Date End Date Nan Worthington MD [address] [place] [address] PCP - General 11/20/16 documented as of this encounter
--- OUTSIDE RECORDS SUMMARY | 2025-06-23 18:13 | XMS_ITS | Encounter Summary ---
Author Organization [facility] Address [address] [facility] [address] [place] [address] Phone Care Team Providers Care Replenishment Associate Name Role Phone Nan Fink NP Primary Care Provider + [phone] Reason for Visit * Reason Onset Date Comments Iraj/Appt coordination 06/20/2025 Encounter Details Date Type Department Care Team (Late st Contact Info) Description 06/20/2025 Telephone [facility] [place] [address] [place] [address] Carlos Galo, [address] [place] [address] [email or web address] Iraj/Appt coordination Social History Tobacco Use Types Packs/Day Years [...] high school, GED, job training, learning the Spanish language, technical skills, or developing parenting skills)? [...] have you moved in the past 12 mon ths? Two or more times 06/21/2024 Paying [...] PM EDT documented as of this encounter Progress Notes * Cora Sheth - 06/20/2025 1:19 PM EDT Images from the original note were not included. Good afternoon, (Note to imaging scheduler: Check the encounters to confirm if there are scheduling instructions from the clinic) (Note to imaging scheduler: If the patient provides times they are not available document the date range) Appointment type: Return patient If new, name of referring provider or is the patient self referred?: If new, what is the DX?: 2. Requested timeframe?: Next available 3. What is the name of the provider the patient is requesting to be scheduled with? Dr. Galo 4. Date of the patients current appointment (if scheduled): 5. Has the appointment been added to the wait list?: No 6. If an appointment was not scheduled what was the reason?: Appt slot on hold. Pt called to c/x and r/s his virtual appt today. See below: Laura Syed Telephone Information: Work Phone Not on file. 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 It is not the complete legal health record.[facility]
--- OUTSIDE RECORDS SUMMARY | 2025-06-23 18:14 | XMS_ITS | Encounter Summary ---
Author Organization [facility] Address [address] [place] [address] Phone Care Team Providers Care Electrical Unit Rebuilder Name Role Phone Nan Worthington MD Primary Care Pr ovider Reason for Visit * Reason Onset Date Comments Med Refill 01/19/2020 Encounter Details Date Type Department Care Team (Late st Contact Info) Description 01/19/2020 Refill [facility] [address] [place] [address] Nan Worthington MD [address] [place] [address] Attention deficit disorder (ADD) without hyperactivity [...] hyperactivity documented in this encounter Care Teams Electrical Unit Rebuilder Relationship Specialty Start Date End Date Nan Worthington MD [address] [place] [address] PCP - General 11/20/16 documented as of this encounter
--- OUTSIDE RECORDS SUMMARY | 2025-06-23 18:14 | XMS_ITS | Encounter Summary ---
Author Organization [facility] Address [address] [place] [address] Phone Care Team Providers Care Rn Orthopaedic Name Role Phone Nan Worthington MD Primary Care Pr ovider Reason for Visit * Reason Onset Date Comments Med Refill 10/26/2020 Encounter Details Date Type Department Care Team ([facility] st Contact Info) Description 10/26/2020 Refill [facility] [address] [address] Nan Worthington MD [address] [place] [address] Attention deficit disorder (ADD) without hyperactivity; Encounter [...] review documented in this encounter Care Teams Rn Orthopaedic Relationship Specialty Start Date End Date Nan Worthington MD [address] [place] [address] PCP - General 11/20/16 documented as of this encounter
--- OUTSIDE RECORDS SUMMARY | 2025-06-23 18:14 | XMS_ITS | Clinical Summary ---
Author Organization [facility] Address [address] [address] Phone Care Team Providers Care Tester Semiconductor Packages Name Role Phone Nan Fink NP Primary Care Provider + [phone] Allergies Active Allergy Reactions Criticality Noted Date [...] Encounters Date Type Department Care Team Description 06/20/2025 Telephone [facility] [place] [address] [place] [address] Carlos Galo DO Arabelovic/Appt coordination 05/19/2025 9:15 AM EDT Telemedicine [facility] [address] [place] [address] Kei Daniels MD Patellofemoral pain syndrome of both knees (Primary Dx); Bilateral chronic knee pain; Benign joint hypermobility 05/17/2025 8:07 PM EDT - 05/17/2025 11:59 PM EDT Hospital Encounter MRI, [facility] [address] [place] [address] Kei Daniels MD Discharge Disposition: Home or Self Care 05/05/2025 9:30 AM EDT Telemedicine [facility] [address] [place] [address] Kei Daniels MD Bilateral chronic knee pain (Primary Dx); Patellofemoral pain syndrome of both knees; Benign joint hypermobility 05/05/2025 Procedure Pass MRI, [facility] [address] [place] [address] 05/05/2025 Procedure Pass MRI, [facility] [address] [place] [address] 04/21/2025 Refill [facility] [address] [address] Carlos Galo, DO Medication Refill from Last [...] high school, GED, job training, learning the Divehi language, technical skills, or developing parenting skills)? [...] 02/19/2024 8:43 AM EDT Plan of Treatment Health Maintenance [...] Daniels MD IM MR EXTREMITY Final Result * MRI KNEE [...] left distalfemur, grossly unchanged. Kei Daniels MD IMG MR EXTREMITY Final Result from Last [address] [place] [address] [place] [address] PPO EPO [facility] [place] PPO EPO [facility] [place] PPO EPO [facility] [place]PO [place] [address] [place] [address] PPO EPO [facility] [place] PPO EPO [facility] [place] PPO EPO [facility] [place] PPO EPO Care Teams Tester [employer]icon[employer] Packages Relationship Specialty Start Date End Date Nan Fink NP [address] [place] [address] PCP - General 11/25/20 Additional Source Comments The information contained in this document represents components of the legal health record. It is not the complete legal health record.[facility]
--- OUTSIDE RECORDS SUMMARY | 2025-06-23 18:14 | XMS_ITS | Encounter Summary ---
Author Organization [facility] Address [address] [place] [address] Phone Care Team Providers Care Hand Gluer And Slicer Name Role Phone Nan Fink NP Primary Care Provider + [phone] Encounter Details Date Type Department Care Team (Late st Contact Info) Description 05/05/2025 Procedure Pass MRI, [facility] [address] [place] [address] Social History Tobacco Use Types Packs/Day Years [...] high school, GED, job training, learning the Bah[place]i language, technical skills, or developing parenting skills)? [...] filedocumented in this encounter Care Teams Hand Gluer And Slicer Relationship Specialty Start Date End Date Nan Fink NP [address] [place] [address] PCP - General 11/25/20 documented as of this encounter Additional Source Comments The information contained in this document represents components of the legal health record. It is not the complete legal health record.[facility]
--- OUTSIDE RECORDS SUMMARY | 2025-06-23 18:14 | XMS_ITS | Encounter Summary ---
Author Organization [facility] Address [address] [place] [address] Phone Care Team Providers Care Textile Chemist Name Role Phone Nan Worthington MD Primary Care Pr ovider Reason for Visit * Reason Onset Date Comments Med Refill 06/12/2021 Encounter Details Date Type Department Care Team ([facility] st Contact Info) Description 06/12/2021 Refill [facility] [address] [address] Nan Worthington MD [address] [place] [address] Attention deficit disorder (ADD) without hyperactivity Social [...] hyperactivity documented in this encounter Care Teams Textile Chemist Relationship Specialty Start Date End Date Nan Worthington MD [address] [place] [address] PCP - General 11/20/16 documented as of this encounter
--- OUTSIDE RECORDS SUMMARY | 2025-06-23 18:14 | XMS_ITS | Encounter Summary ---
Author Organization [facility] Address [address] [place] [address] Phone Care Team Providers Care Local Combination Truck Driver Name Role Phone Nan Worthington MD Primary Care Pr ovider Reason for Visit * Reason Onset Date Comments Med Refill 08/24/2020 Encounter Details Date Type Department Care Team ([facility] st Contact Info) Description 08/24/[address] [address] Nan Worthington MD [address] [place] [address] Attention deficit disorder (ADD) without hyperactivity; Encounter [...] review documented in this encounter Care Teams Local Combination Truck Driver Relationship Specialty Start Date End Date Nan Worthington MD [address] [place], [place] [phone] PCP - General 11/20/16 documented as of this encounter
== END 2025-06-23 14:05 | disposition home or self-care (01) ==
LOC: HO.HMCFM 13:42
PROVIDERS: PCP Physician Assistant Medical; Visit Provider Physician Assistant Medical
DX: R79.89 Other specified abnormal findings of blood chemistry (principal); K21.9 Gastro-esophageal reflux disease without esophagitis

== ENCOUNTER 2025-06-23 13:42 | Outpatient (REF) | payer BC, SELFPAY ==
[2025-06-23 18:01] LABS: MANUAL DIFF FLAG NO
[2025-06-23 18:13] LABS: Hematocrit 41.6 % (42.0-52.0); Hemoglobin 14.3 g/dl (14.0-18.0); Imm Gran Abs Auto 0.01 X10*3/uL (0.00-0.03); Imm Gran Pct Auto 0.2 % (0.0-0.4); Lymphocytes Absolute Auto 1.5 X10*3/uL (1.2-4.9); Mean Corpuscular HGB Conc 34.4 g/dl (31.0-36.0); Mean Corpuscular Hemoglobin 30.2 pg (27.0-33.0); Mean Corpuscular Volume 87.9 fL (80.0-98.0); NRBC Abs Auto 0.000 X10*3/uL (0.0-0.012); NRBC Pct Auto 0.0 /100WBC (0.0-0.2); Platelet Count 219 X10*3/uL (160-400); Red Blood Count 4.73 X10*6/uL (4.60-5.80); White Blood Count 6.0 X10*3/uL (4.8-10.8)
[2025-06-23 18:52] LABS: Alanine Aminotransferase 30 U/L (0-40); Aspartate Amino Transferase 37 U/L (5-37)
== END 2025-06-23 13:43 | disposition home or self-care (01) ==
LOC: HO.WFDLDS 13:42
PROVIDERS: PCP Physician Assistant Medical; Visit Provider Physician Assistant Medical
DX: R79.89 Other specified abnormal findings of blood chemistry (principal); K21.9 Gastro-esophageal reflux disease without esophagitis
CPT/HCPCS: 36415; 84450; 84460; 85025

== ENCOUNTER 2025-09-26 18:41 | Outpatient (REF) | payer BC, SELFPAY ==
--- OUTSIDE RECORDS SUMMARY | 2025-09-21 09:00 | XMS_ITS | Encounter Summary ---
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; Gender dysphoria Social History Tobacco Use Types Packs/Day Years Used Date Smoking Tobacco: Never Passive Smoke Exposure: Current Smokeless Tobacco: Never Comments Unknown Sex and Gender Information Value Date Recorded Sex Assigned at Female 05/26/2024 7:47 AM EDT Legal Sex Male 7:47 AM EDT Gender Identity Not on file Sexual Orientation Not on file documented as of this encounter Last Filed Vital Signs Vital Sign Reading Time Taken Comments Blood Pressure 127/72 09/21/2025 9:05 AM EST Pulse 83 09/21/2025 9:05 AM EST Temperature - - Respiratory Rate - - Oxygen Saturation - - Inhaled Oxygen Concentration - - Weight 86 kg (189 lb 9.5 oz) 09/21/2025 9:05 AM EST Height - - Body Mass Index 30.04 06/29/2025 1:52 PM EDT documented in this encounter Plan of Treatment Upcoming Encounters Date Type Department Care Team (Late st Contact Info) Description 11/15/2025 9:00 AM EST Office Visit [facility] [address] [place] [phone] Idalia Hammond, SEMICONDUCTOR EQUIPMENT TECHNICIAN [address] [place] [address] 09/19/2026 10:30 AM EST Office Visit [facility] [address] [place] [phone] Ledy Garcia, SEMICONDUCTOR EQUIPMENT TECHNICIAN [address] [place] [address] Pending Results Name Type Priority Associated Diagnoses Date /Time Testosterone Free and Total Lab Routine Gender dysphoria 09/21/2025 9:41 AM EST Scheduled Orders Name Type Priority Associated Diagnoses Orde r Schedule Testosterone Free and Total Lab Routine Gender dysphoria Expected: 09/21/2025 (Approximate), Expires: 09/21/2026 documented as of this encounter Results * Comprehensive Metabolic Panel (BMP PLUS Alb, Bili Tot, Alk P) (09/21/2025 9:41 AM EST) Sodium 139 135 - 148 mmol/L LAB CHEMISTRY METHOD 09/21/2025 2:28 PM EST [facility] Potassium 4.36 3.20 - 4.50 mmol/L LAB CHEMISTRY METHOD 09/21/2025 2:28 PM EST [facility] Chloride 102 96 - 109 mmol/L LAB CHEMISTRY METHOD 09/21/2025 2:28 PM EST [facility] CO2 27 22 - 30 mmol/L 09/21/2025 2:28 PM EST [facility] Anion Gap 10.4 7.0 - 14.0 mmol/L 09/21/2025 2:28 PM [facility] BUN 14 7 - 18 mg/dL 09/21/2025 2:28 PM [facility] Creatinine 0.88 0.50 - 1.30 mg/dL 09/21/2025 2:28 PM [facility] Glucose 91 70 - 199 mg/dL 09/21/2025 2:28 PM [facility] Comment: Normal plasma glucose is very much dependent on feeding and fasting and time since last meal, etc. Normal fasting plasma glucose is 61-99; random non-fasting plasma glucose should be <200. These cutpoints are used by the [place] [employer]: Fasting >= 100 to 125 = impaired fasting glucose Fasting >= 126 = diabetes Random >= 200 = consistent with diabetes. New diabetes mellitus may be life threatening without emergent treatment. If your patient does not have previously diagnosed diabetes mellitus and you are uncertain about the cause of the blood sugar >= 200 mg/dl, contact the endocrine doctor ed special education teacher. Calcium 9.9 8.4 - 10.5 mg/dL 09/21/2025 2:28 PM [facility] Albumin 4.5 3.0 - 4.6 g/dL 09/21/2025 2:28 PM [facility] Total Bilirubin 0.4 0.3 - 1.2 mg/dL 09/21/2025 2:28 PM [facility] Alkaline Phosphatase 78 30 - 120 unit/L 09/21/2025 2:28 PM [facility] Total Protein 7.6 5.5 - 8.2 g/dL 09/21/2025 2:28 PM [facility] ALT (SGPT) 25 3 - 30 unit/L 09/21/2025 2:28 PM [facility] AST 29 2 - 40 unit/L 09/21/2025 2:28 PM [facility] eGFR >90.0 >60.0 mL/min/1.7 3m*2 09/21/2025 2:28 PM [facility] Blood Venous structure / Unknown Venipuncture / Unknown 09/21/2025 9:41 AM EST 09/21/2025 9:41 AM EST us Ledy Garcia SEMICONDUCTOR EQUIPMENT TECHNICIAN LAB BLOOD ORDERABLES Final Res ult [facility] [place] [address], * (ABNORMAL) CBC (09/21/2025 9:41 AM EST) WBC 5.51 4.48 - 10.04 K cells/uL LAB HEMATOLOGY METHOD 09/21/2025 2:07 PM EST [facility] RBC 5.20 4.03 - 5.58 M cells/uL LAB HEMATOLOGY METHOD 09/21/2025 2:07 PM [facility] Hemoglobin 15.6(H) 10.9 - 15.1 g/dL LAB HEMATOLOGY METHOD 09/21/2025 2:07 PM [facility] Hematocrit 45.9 35.5 - 50.0 % LAB HEMATOLOGY METHOD 09/21/2025 2:07 PM [facility] MCV 88.3 80.0 - 93.7 fL LAB HEMATOLOGY METHOD 09/21/2025 2:07 PM [facility] MCH 30.0 27.3 - 31.2 pg LAB HEMATOLOGY METHOD 09/21/2025 2:07 PM [facility] MCHC 34.0 31.3 - 34.8 g/dL LAB HEMATOLOGY METHOD 09/21/2025 2:07 PM [facility] RDW 11.5 11.1 - 14.8 % LAB HEMATOLOGY METHOD 09/21/2025 2:07 PM [facility] Platelets 218 150 - 450 K cells/uL LAB HEMATOLOGY METHOD 09/21/2025 2:07 PM [facility] MPV 10.5 9.6 - 11.9 fL LAB HEMATOLOGY METHOD 09/21/2025 2:07 PM [facility] Nucleated RBCs % 0.0 % LAB HEMATOLOGY METHOD 09/21/2025 2:07 PM [facility] Absolute Nucleated RBC Count 0.00 K cells/uL LAB HEMATOLOGY METHOD 09/21/2025 2:07 PM [facility] Blood Venous structure / Unknown Venipuncture / Unknown 09/21/2025 9:41 AM EST 09/21/2025 9:41 AM EST Ledy Cheryl Jose ESPINOZA LAB BLOOD ORDERABLES Final Res ult Performing Organization Address [facility]/ZIP Co de Phone Number [address] [address], [place] [phone] * 25-Hydroxy Vitamin D (09/21/2025 9:41 AM EST) Vit D, 25-Hydroxy 42.0 30.0 - 80.0 ng/mL 09/24/2025 12:35 PM EST [facility] Blood Venous structure / Unknown Venipuncture / Unknown 09/21/2025 9:41 AM EST 09/21/2025 9:41 AM EST Narrative [facility] - 09/24/2025 12:35 PM EST Deficiency: Less than 20 ng/mL Insufficiency: 20-29 ng/mL Optimum Level: 30-80 ng/mL Possible Toxicity: Greater than 80 ng/mL us Ledy Garcia CNP LAB BLOOD ORDERABLES Final Res ult Performing Organization Address [facility] Co de Phone Number [address] [address], * Cholesterol, HDL (09/21/2025 9:41 AM EST) HDL 37.9 mg/dL 09/21/2025 2:28 PM EST [facility] Comment: For young adults (> 19 years of age) HDL cholesterol: <40 mg/dL low, 40 - 45 borderline, greater than 45 mg/dL acceptable. For children and adolescents (<= 19 years of age): HDL cholesterol: <40 mg/dL low, 40 - 45 borderline, greater than 45 mg/dL acceptable. Reference: Expert Panel on Integrated Guidelines for Cardiovascular Health and Risk Reduction in Children and Adolescents: Summary Report. NIH Publication 12-7486A. June 2012. Available online at http://www.nhlbi.nih.gov/guidelines/cvd_ped/peds_guidelines_sum.pdf or http://www.nhlbi.nih.gov/guidelines/cvd_ped/summary.htm#chap9 Blood Venous structure / Unknown Venipuncture / Unknown 09/21/2025 9:41 AM EST 09/21/2025 9:41 AM EST us Ledy Garcia CNP LAB BLOOD ORDERABLES Final Res ult Performing Organization Address [facility] Co de Phone Number [address] [address], * Cholesterol, Total (09/21/2025 9:41 AM EST) Cholesterol 144 mg/dL 09/21/2025 2:28 PM EST [facility] Comment: For young adults (> 19 years of age) Total cholesterol: <190 mg/dL acceptable, 190 - 224 mg/dL borderline high, greater than or equal to 225 mg/dL high. For children and adolescents (<= 19 years of age): Total cholesterol: <170 mg/dL acceptable, 170 - 199 mg/dL borderline high, greater than or equal to 200 mg/dL high. Reference: Expert Panel on Integrated Guidelines for Cardiovascular Health and Risk Reduction in Children and Adolescents: Summary Report. NIH Publication 12-7486A. June 2012. Available online at http://www.nhlbi.nih.gov/guidelines/cvd_ped/peds_guidelines_sum.pdf or http://www.nhlbi.nih.gov/guidelines/cvd_ped/summary.htm#chap9 Blood Venous structure / Unknown Venipuncture / Unknown 09/21/2025 9:41 AM EST 09/21/2025 9:41 AM EST us Ledy Garcia CNP LAB BLOOD ORDERABLES Final Res ult Performing Organization Address [facility] Co de Phone Number [address] [address], [place] [phone] documented in this encounter Visit Diagnoses Diagnosis Encounter for long-term (current) use of medications Encounter for long-term (current) use of other medications 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
--- OUTSIDE RECORDS SUMMARY | 2025-09-21 09:45 | XMS_ITS | Encounter Summary ---
Author Organization [facility] spital Address [address] [place] [address] Phone Care Team Providers Care Foil Wrapper Name Role Phone Nan Hutchins MD Primary Care Provider Nan Hutchins MD Unavailable Nan Hutchins MD Unavailable Reason for Visit * Consultation (Routine) - Pending Review Specialty Diagnoses / Procedures Referred By Honey jolly Referred To Contact Lab Referral ID Status Reason Start Date Expiration Date V isits Requested Visits Authorized [id number] Pending Review 09/21/2025 09/21/2026 6 6 Encounter Details Date Type Department Care Team (Late st Contact Info) Description 09/21/2025 9:45 AM EST Lab [facility] [address] [place] [address] Encounter for long-term (current) use of medications; [...] Description 11/15/2025 9:00 AM EST Office Visit [facility] Gynecology 2 [place] [phone] Idalia Hammond, FRETTED STRING INSTRUMENT REPAIRER [address] [place] [address] 09/19/2026 10:30 AM EST Office Visit [facility] [address] [place] [address] Ledy Garcia, FRETTED STRING INSTRUMENT REPAIRER [address] [place] [address] Pending Results Name Type Priority Associated Diagnoses Date /Time Testosterone Free and Total Lab Routine Gender dysphoria 09/21/2025 9:41 AM EST Testosterone Level, Free Lab Routine Gender dysphoria 09/21/2025 9:41 AM EST Testosterone Level Lab Routine Gender dysphoria 09/21/2025 9:41 AM EST documented as of this encounter Procedures Procedure Name Priority Date/Time Associated Diagnosis Comments SEX HORMONE BINDING GLOBULIN Routine 09/21/2025 9:41 AM EST Gender dysphoria VITAMIN D 25-HYDROXY Routine 09/21/2025 9:41 AM EST Encounter for long-term (current) use of medications 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 CBC Routine 09/21/2025 9:41 AM EST Gender dysphoria HDL CHOLESTEROL Routine 09/21/2025 9:41 AM EST Encounter for long-term (current) use of medications 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 CHOLESTEROL TOTAL Routine 09/21/2025 9:4 1 AM EST Encounter for long-term (current) use of medications 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 COMPREHENSIVE METABOLIC PANEL (BMP PLUS ALB, BILI TOT, ALK P) Routine 09/21/2025 9:41 AM EST Gender dysphoria documented in this encounter Results * Sex Hormone Binding Globulin (09/21/2025 9:41 AM EST) Sex Hormone Binding 13.4 11.0 - 135.0 nmol/L 09/21/2025 2:23 PM [facility] Blood Venous structure / Unknown Venipuncture / Unknown 09/21/2025 9:41 AM EST 09/21/2025 9:41 AM EST [facility] - 09/21/2025 2:23 PM EST Females Chris Stage I: 30 - 173 nmol/L Chris Stage II: 16 - 127 nmol/L Chris Stage III: 12 - 98 nmol/L Chris Stage IV: 14 - 151 nmol/L Chris Stage V: 23 - 165 nmol/L Males Chris Stage I: 26 - 186 nmol/L Chris Stage II: 22 - 169 nmol/L Chris Stage III: 13 - 104 nmol/L Chris Stage IV: 11 - 60 nmol/L Chris Stage V: 11 - 71 nmol/L us Ledy Garcia FRETTED STRING INSTRUMENT REPAIRER LAB BLOOD [place] [address], * Comprehensive Metabolic Panel (BMP PLUS Alb, Bili Tot, Alk P) (09/21/2025 9:41 AM EST) Sodium 139 135 - 148 mmol/L LAB CHEMISTRY METHOD 09/21/2025 2:28 PM EST [facility] Potassium 4.36 3.20 - 4.50 mmol/L LAB CHEMISTRY METHOD 09/21/2025 2:28 PM [facility] Chloride 102 96 - 109 mmol/L LAB CHEMISTRY METHOD 09/21/2025 2:28 PM [facility] CO2 27 22 - 30 mmol/L 09/21/2025 2:28 PM [facility] Anion Gap 10.4 7.0 - 14.0 mmol/L 09/21/2025 2:28 PM [facility] BUN 14 7 - 18 mg/dL 09/21/2025 2:28 PM [facility] Creatinine 0.88 0.50 - 1.30 mg/dL 09/21/2025 2:28 PM [facility] Glucose 91 70 - 199 mg/dL 09/21/2025 2:28 PM [facility] Comment: Normal plasma glucose is very much dependent on feeding and fasting and time since last meal, etc. Normal fasting plasma glucose is 61-99; random non-fasting plasma glucose should be <200. These cutpoints are used by the [place] [employer]: Fasting >= 100 to 125 = impaired fasting glucose Fasting >= 126 = diabetes Random >= 200 = consistent with diabetes. New diabetes mellitus may be life threatening without emergent treatment. If your patient does not have previously diagnosed diabetes mellitus and you are uncertain about the cause of the blood sugar >= 200 mg/dl, contact the endocrine doctor manager interventional. Calcium 9.9 8.4 - 10.5 mg/dL 09/21/2025 2:28 PM [facility] Albumin 4.5 3.0 - 4.6 g/dL 09/21/2025 2:28 PM [facility] Total Bilirubin 0.4 0.3 - 1.2 mg/dL 09/21/2025 2:28 PM [facility] Alkaline Phosphatase 78 30 - 120 unit/L 09/21/2025 2:28 PM [facility] Total Protein 7.6 5.5 - 8.2 g/dL 09/21/2025 2:28 PM [facility] ALT (SGPT) 25 3 - 30 unit/L 09/21/2025 2:28 PM [facility] AST 29 2 - 40 unit/L 09/21/2025 2:28 PM [facility] eGFR >90.0 >60.0 mL/min/1.7 3m*2 09/21/2025 2:28 PM [facility] Blood Venous structure / Unknown Venipuncture / Unknown 09/21/2025 9:41 AM EST 09/21/2025 9:41 AM EST Ledy Garcia FRETTED STRING INSTRUMENT REPAIRER LAB BLOOD ORDERABLES Final Res ult [facility] [place] [address], * (ABNORMAL) CBC (09/21/2025 9:41 AM EST) WBC 5.51 4.48 - 10.04 K cells/uL LAB HEMATOLOGY METHOD 09/21/2025 2:07 PM EST [facility] RBC 5.20 4.03 - 5.58 M cells/uL LAB HEMATOLOGY METHOD 09/21/2025 2:07 PM EST [facility] Hemoglobin 15.6(H) 10.9 - 15.1 g/dL LAB HEMATOLOGY METHOD 09/21/2025 2:07 PM EST [facility] Hematocrit 45.9 35.5 - 50.0 % LAB HEMATOLOGY METHOD 09/21/2025 2:07 PM EST [facility] MCV 88.3 80.0 - 93.7 fL LAB HEMATOLOGY METHOD 09/21/2025 2:07 PM EST [facility] MCH 30.0 27.3 - 31.2 pg LAB HEMATOLOGY METHOD 09/21/2025 2:07 PM EST [facility] MCHC 34.0 31.3 - 34.8 g/dL LAB HEMATOLOGY METHOD 09/21/2025 2:07 PM EST [facility] RDW 11.5 11.1 - 14.8 % LAB HEMATOLOGY METHOD 09/21/2025 2:07 PM EST [facility] Platelets 218 150 - 450 K cells/uL LAB HEMATOLOGY METHOD 09/21/2025 2:07 PM [facility] MPV 10.5 9.6 - 11.9 fL LAB HEMATOLOGY METHOD 09/21/2025 2:07 PM [facility] Nucleated RBCs % 0.0 % LAB HEMATOLOGY METHOD 09/21/2025 2:07 PM EST [facility] Absolute Nucleated RBC Count 0.00 K cells/uL LAB HEMATOLOGY METHOD 09/21/2025 2:07 PM EST [facility] Blood Venous structure / Unknown Venipuncture / Unknown 09/21/2025 9:41 AM EST 09/21/2025 9:41 AM EST Ledy Garcia [facility] LAB BLOOD ORDERABLES Final Res ult Performing Organization Address [facility] Co de Phone Number [address] [address], * 25-Hydroxy Vitamin D (09/21/2025 9:41 AM EST) Vit D, 25-Hydroxy 42.0 30.0 - 80.0 ng/mL 09/24/2025 12:35 PM EST [facility] Blood Venous structure / Unknown Venipuncture / Unknown 09/21/2025 9:41 AM EST 09/21/2025 9:41 AM EST Narrative [facility] - 09/24/2025 12:35 PM EST Deficiency: Less than 20 ng/mL Insufficiency: 20-29 ng/mL Optimum Level: 30-80 ng/mL Possible Toxicity: Greater than 80 ng/mL Ledy Garcia [facility] LAB BLOOD ORDERABLES Final Res ult Performing Organization Address [facility] de Phone Number [address] [address], * Cholesterol, HDL (09/21/2025 9:41 AM EST) HDL 37.9 mg/dL 09/21/2025 2:28 PM EST [facility] Comment: For young adults (> 19 [...] AM EST 09/21/2025 9:41 AM EST Ledy Luna Jose ESPINOZA LAB BLOOD ORDERABLES Final Res ult Performing Organization Address [facility] Co de Phone Number [address] [address], [place] [phone] * Cholesterol, Total (09/21/2025 9:41 AM EST) Cholesterol 144 mg/dL 09/21/2025 2:28 PM EST [facility] Comment: For young adults (> 19 [...] AM EST 09/21/2025 9:41 AM EST Ledy Garcia CNP LAB BLOOD ORDERABLES Final Res ult Performing Organization Address City/[facility]/ZIP Co de Phone Number [address] [address], [place] [phone] documented in this encounter Visit Diagnoses Diagnosis Encounter for long-term (current) use of medications Encounter for long-term (current) use of other medications 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
--- OUTSIDE RECORDS SUMMARY | 2025-09-26 18:44 | XMS_ITS | Encounter Summary ---
Author Organization [facility] spital Address [address] [place] [address] Phone Care Team Providers Care Workcell Operator Name Role Phone Nan Hutchins MD Primary Care Provider Nan Hutchins MD Unavailable Nan Hutchins MD Unavailable Encounter Details Date Type Department Care Team (Late st Contact Info) Description 02/19/2024 Abstract Cerner Conversion Provider, Historic [address] [place] [address] Laboratory test (Primary Dx) Social History Tobacco [...] Description 11/15/2025 9:00 AM EST Office Visit [facility] Gynecology 2 [place] [phone] Idalia Hammond, INDUCTION HEATING EQUIPMENT SETTER [address] [place] [address] 09/19/2026 10:30 AM EST Office [place] [phone] Ledy Garcia, INDUCTION HEATING EQUIPMENT SETTER [address] [place] [address] documented as of this encounter Visit Diagnoses Diagnosis Laboratory test- Primary Laboratory examination, unspecified documented in this encounter Care Teams Workcell Operator Relationship Specialty Start Date End Date Nan Hutchins MD [address] [place] [phone] PCP - General 02/16/24 Nan Hutchins MD [address] [place] [phone] PCP - Clinical PCP 09/01/17 Nan Hutchins MD [address] [place] [phone] PCP - Insurance PCP 09/01/17 documented as of this encounter
--- OUTSIDE RECORDS SUMMARY | 2025-09-26 18:44 | XMS_ITS | Clinical Summary ---
Author Organization [facility] spital Address [address] [place] [address] Phone Care Team Providers Care It Network Architect Name Role Phone Nan Hutchins MD Primary [...] tablet Entered: 10/31/23 13:00:00 EST 4 Active amphetamine-dextr oamphetamine XR (Adderall XR) 15 mg 24 hr capsule Take 1 capsule by mouth every morning. 4 Active hydroxychloroquin e (Plaquenil) 200 mg tablet Take 400 mg by mouth 1 time each day. Active testosterone (TestopeL) implant Inject 8 each under the skin every 3 months. 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 Active testosterone enanthate (Delatestryl) 200 mg/mL injection Inject into a muscle as directed 1 time each week. 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; Gender dysphoria 09/21/2025 9:00 AM EST Office Visit [facility] [address] [place] [phone] Ledy Garcia CNP Encounter for long-term (current) use of medications; 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; Gender dysphoria 09/21/2025 Travel 07/06/2025 Orders Only [facility] [address] [place] [phone] Ledy Garcia CNP 06/29/2025 2:00 PM EDT Office Visit [facility] Gynecology 2 [place] [phone] Gema Bond MD Gender dysphoria (Primary Dx) 06/29/2025 Travel 06/28/2025 Telephone [facility] Gynecology [address] [place] [phone] Devora Kwon, DANN from Last 3 Months Immunizations Immunization Administration [...] Pulse 83 09/21/2025 9:05 AM EST Temperature 37.3 C (99.1 F) 10/29/2024 3:43 PM EST Respiratory Rate - - Oxygen Saturation 100% 10/29/2024 3:43 PM EST Inhaled Oxygen Concentration - - Weight 86 kg (189 lb 9.5 oz) 09/21/2025 9:05 AM EST Height 169.2 cm (5' 6.61 ) 06/29/2025 1:52 PM ED T Body Mass Index 30.04 06/29/2025 1:52 PM EDT Plan of Treatment Upcoming Encounters Date Type Department Care Team (Late st Contact Info) Description 11/15/2025 9:00 AM EST Office Visit [facility] Gynecology 2 [place] [phone] Idalia Hammond, COMMUNICATIONS SUPERINTENDENT [address] [place] [address] 09/19/2026 10:30 AM EST Office Visit [address] [phone] Ledy Garcia, COMMUNICATIONS SUPERINTENDENT [address] [place] [address] Health Maintenance Due Date Last Done Comments Hepatitis C Screening 2018 Chlamydia and Gonorrhea Screening 10/11/2022 10/11/2021 COVID-19 Vaccine ( season) 2025 06/19/2022, 09/04/2021, 02/11/2021, Additional history exists Influenza Vaccine (#1) 2025 , 07/24/2021, 07/11/2020, Additional history exists Anemia Screening 09/21/2030 09/21/2025, 10/2023, 10/31/2023, Additional history exists DTaP/Tdap/Td Vaccines (8 - [...] Routine 09/21/2025 9:41 AM EST Gender dysphoria COMPREHENSIVE METABOLIC PANEL (BMP PLUS ALB, BILI TOT, ALK P) Routine 09/21/2025 9:41 AM EST Gender dysphoria CBC Routine 09/21/2025 9:41 AM EST Gender dysphoria VITAMIN D 25-HYDROXY Routine 09/21/2025 9:41 AM EST Encounter for long-term (current) use of medications 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 HDL CHOLESTEROL Routine 09/21/2025 9:41 AM EST Encounter for long-term (current) use of medications 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 CHOLESTEROL TOTAL Routine 09/21/2025 9:4 1 AM EST Encounter for long-term (current) use of medications 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 CHLAMYDIA AND GONORRHEA, AMPLIFIED, QUAL Routine 10/11/2021 9:07 AM EST RAPID HIV 1 AND 2 SCREEN Routine 10/11/2021 9:03 AM EST from Last 3 Months or Most Recently Relevant to Health Maintenance Results * Sex Hormone Binding Globulin (09/21/2025 9:41 AM EST) Sex Hormone Binding 13.4 11.0 - 135.0 nmol/L 09/21/2025 2:23 PM EST [facility] Blood Venous structure / Unknown Venipuncture / Unknown 09/21/2025 9:41 AM EST 09/21/2025 9:41 AM EST Narrative [facility] - 09/21/2025 2:23 PM EST Females Chris [...] 11 - 71 nmol/L us Ledy Garcia CNP LAB BLOOD ORDERABLES Final Res ult Performing Organization Address [facility]/ZIP Co de Phone Number [address] [address], * 25-Hydroxy Vitamin D (09/21/2025 9:41 AM EST) Pathologist [facility] Vit D, 25-Hydroxy 42.0 30.0 - 80.0 ng/mL 09/24/2025 12:35 PM EST [facility] Blood Venous structure / Unknown Venipuncture / Unknown 09/21/2025 9:41 AM EST 09/21/2025 9:41 AM EST [facility] - 09/24/2025 12:35 PM EST Deficiency: Less than 20 ng/mL Insufficiency: 20-29 ng/mL Optimum Level: 30-80 ng/mL Possible Toxicity: Greater than 80 ng/mL Ledy Garcia CNP LAB BLOOD ORDERABLES Final Res ult Performing Organization Address [facility] Co de Phone Number [address] [address], [place] [phone] * (ABNORMAL) CBC (09/21/2025 9:41 AM EST) [facility] WBC 5.51 4.48 - 10.04 K cells/uL LAB HEMATOLOGY METHOD 09/21/2025 2:07 PM [facility] RBC 5.20 4.03 - 5.58 M cells/uL LAB HEMATOLOGY METHOD 09/21/2025 2:07 PM [facility] Hemoglobin 15.6(H) 10.9 - 15.1 g/dL LAB HEMATOLOGY METHOD 09/21/2025 2:07 PM [facility] Hematocrit 45.9 35.5 - 50.0 % LAB HEMATOLOGY METHOD 09/21/2025 2:07 PM [facility] MCV 88.3 80.0 - 93.7 fL LAB HEMATOLOGY METHOD 09/21/2025 2:07 PM [facility] MCH 30.0 27.3 - 31.2 pg LAB HEMATOLOGY METHOD 09/21/2025 2:07 PM [facility] MCHC 34.0 31.3 - 34.8 g/dL LAB HEMATOLOGY METHOD 09/21/2025 2:07 PM EST [facility] RDW 11.5 11.1 - 14.8 % LAB HEMATOLOGY METHOD 09/21/2025 2:07 PM EST [facility] Platelets 218 150 - 450 K cells/uL LAB HEMATOLOGY METHOD 09/21/2025 2:07 PM EST [facility] MPV 10.5 9.6 - 11.9 fL LAB HEMATOLOGY METHOD 09/21/2025 2:07 PM EST [facility] Nucleated RBCs % 0.0 % LAB HEMATOLOGY METHOD 09/21/2025 2:07 PM EST [facility] Absolute Nucleated RBC Count 0.00 K cells/uL LAB HEMATOLOGY METHOD 09/21/2025 2:07 PM EST [facility] Blood Venous structure / Unknown Venipuncture / Unknown 09/21/2025 9:41 AM EST 09/21/2025 9:41 AM EST Ledy Garcia [facility] LAB BLOOD ORDERABLES Final Res ult [facility] [address] [place] [address], * Cholesterol, HDL (09/21/2025 9:41 AM EST) HDL 37.9 mg/dL 09/21/2025 2:28 PM EST [facility] Comment: For young adults (> 19 years [...] EST 09/21/2025 9:41 AM EST us Ledy Luna Jose ESPINOZA LAB BLOOD ORDERABLES Final Res ult Performing Organization Address [facility] Co de Phone Number [address] [address], * Cholesterol, Total (09/21/2025 9:41 AM EST) Cholesterol 144 mg/dL 09/21/2025 2:28 PM EST [facility] Comment: For young adults (> 19 years [...] 9:41 AM EST 09/21/2025 9:41 AM EST Ldey Cheryl Jose ESPINOZA LAB BLOOD ORDERABLES Final Res ult Performing Organization Address [facility]/ZIP Co de Phone Number [address] [address], [place] [phone] * Comprehensive Metabolic Panel (BMP PLUS Alb, Bili Tot, Alk P) (09/21/2025 9:41 AM EST) Sodium 139 135 - 148 mmol/L LAB CHEMISTRY METHOD 09/21/2025 2:28 PM [facility] Potassium 4.36 3.20 - 4.50 mmol/L LAB CHEMISTRY METHOD 09/21/2025 2:28 PM [facility] Chloride 102 96 - 109 mmol/L LAB CHEMISTRY METHOD 09/21/2025 2:28 PM [facility] CO2 27 22 - 30 mmol/L 09/21/2025 2:28 PM [facility] Anion Gap 10.4 7.0 - 14.0 mmol/L 09/21/2025 2:28 PM [facility] BUN 14 7 - 18 mg/dL 09/21/2025 2:28 PM [facility] Creatinine 0.88 0.50 - 1.30 mg/dL 09/21/2025 2:28 PM [facility] Glucose 91 70 - 199 mg/dL 09/21/2025 2:28 PM [facility] Comment: Normal plasma glucose is very much dependent on feeding and fasting and time since last meal, etc. Normal fasting plasma glucose is 61-99; random non-fasting plasma glucose should be <200. These cutpoints are used by the [place] [employer]: Fasting >= 100 to 125 = impaired fasting glucose Fasting >= 126 = diabetes Random >= 200 = consistent with diabetes. New diabetes mellitus may be life threatening without emergent treatment. If your patient does not have previously diagnosed diabetes mellitus and you are uncertain about the cause of the blood sugar >= 200 mg/dl, contact the endocrine doctor group segment consultant. Calcium 9.9 8.4 - 10.5 mg/dL 09/21/2025 2:28 PM [facility] Albumin 4.5 3.0 - 4.6 g/dL 09/21/2025 2:28 PM [facility] Total Bilirubin 0.4 0.3 - 1.2 mg/dL 09/21/2025 2:28 PM [facility] Alkaline Phosphatase 78 30 - 120 unit/L 09/21/2025 2:28 PM [facility] Total Protein 7.6 5.5 - 8.2 g/dL 09/21/2025 2:28 PM [facility] ALT (SGPT) 25 3 - 30 unit/L 09/21/2025 2:28 PM [facility] AST 29 2 - 40 unit/L 09/21/2025 2:28 PM EST [facility] eGFR >90.0 >60.0 mL/min/1.7 3m*2 09/21/2025 2:28 PM EST [facility] Blood Venous structure / Unknown Venipuncture / Unknown 09/21/2025 9:41 AM EST 09/21/2025 9:41 AM EST Ledy Garcia CNP LAB BLOOD ORDERABLES Final Res ult [facility] [address] [place] [address], [place] [phone] * Chlamydia and Gonorrhea, Amplified, QuaL (10/11/2021 9:07 AM EST) Gonorrhea, Amplified, QuaL Negative [facility] Comment: 1.) (Medium Importance) Interpretive Data by SYSTEM , SYSTEM on October 12, 2021 12:24 A positive test for N. gonorrhoeae, C. trachomatis or T. vaginalis in a prepubertal child should be reported to the Child Protection Program. Additional testing may be required before treatment, and further evaluation may be necessary. This can be facilitated by contacting the Child Protection Program. Chlamydia, Amplified, QuaL Negative [facility] Comment: 1.) (Medium Importance) Interpretive Data by SYSTEM , SYSTEM on October 12, 2021 12:24 A positive test for N. gonorrhoeae, C. trachomatis or T. vaginalis in a prepubertal child should be reported to the Child Protection Program. Additional testing may be required before treatment, and further evaluation may be necessary. This can be facilitated by contacting the Child Protection Program. 10/11/2021 9:07 AM EST 10/11/2021 3:21 PM EST Yazmin Gastelum MD LAB MICROBIOLOGY - GENERAL ORDER SULLY Final Result [facility] [address] [place] [address], [place] [phone] * HIV-1/2 Combo Ag/Ab w/ Reflex Confirmation (10/11/2021 9:03 AM EST) HIV-1/2 Combo Antigen/Antibo dy Nonreactive [facility] Comment: 1.) (Medium Importance) Result Comment by [...] MD LAB BLOOD [place] [address], from Last 3 Months or Most Recently Relevant to Health Maintenance Insurance [employer] Syn[employer] Member Subscriber Plan / Payer (Ef fective 2018-Present) Name:Laura Hope Relation to Subscriber:Child Name:MICHAEL HOPE Date of :1912 Address: [address] [place] [id number] Payer ID:[id number] (NAIC) Type:Not on file Address: [place] [id number] Care Teams It Network Architect Relationship Specialty Start Date End Date Nan Hutchins MD [address] [place] [phone] PCP - General 02/16/24 Nan Hutchins MD [address] [place] [phone] PCP - Clinical PCP 09/01/17 Nan Hutchins MD [address] [place] [phone] PCP - Insurance PCP 09/01/17
--- OUTSIDE RECORDS SUMMARY | 2025-09-26 18:44 | XMS_ITS | Encounter Summary ---
Author Organization [facility] Address [address] [address] Phone Care Team Providers Care Donor Floor Technician Name Role Phone Nan Fink NP Primary Care Provider + [phone] Encounter Details Date Type Department Care Team (Late st Contact Info) Description 11/25/2020 Procedure Pass [facility], Ct Scan - [address] [address] Social History Tobacco Use Types Packs/Day Years [...] Care Team (Late st Contact Info) Description 01/05/2026 10:00 AM EDT Office Visit [facility] [address] [place] [address] [phone] Hayden Castillo MD, PhD [address] [place] [phone] [email or web address] 01/17/2026 4:20 PM EDT Telemedicine [facility] [address] [place] [address] Carlos Galo DO [address] [place] [address] [email or web address] documented as of this encounter Visit Diagnoses Not on filedocumented in this encounter Care Teams Donor Floor Technician Relationship Specialty Start Date End Date Nan Fink NP [address] [place] [phone] PCP - General 11/25/20 documented as of this encounter Additional Source Comments The information contained in this document represents components of the legal health record. It is not the complete legal health record.[facility]
--- OUTSIDE RECORDS SUMMARY | 2025-09-26 18:44 | XMS_ITS | Encounter Summary ---
Author Organization [facility] Address [address] [place] [address] Phone Care Team Providers Care Torch Shearer Name Role Phone Nan Hutchins MD Primary Care Provider Nan Hutchins MD Unavailable Nan Hutchins MD Unavailable Encounter Details Date Type Department Care Team (Latest Contact Info) Description 09/21/2025 Travel Social History Tobacco Use Types Packs/Day Years [...] Description 11/15/2025 9:00 AM EST Office Visit [facility] Gynecology [address] [place] [phone] Idalia Hammond, FORMS ANALYSIS MANAGER [address] [place] [address] 09/19/2026 10:30 AM EST Office [place] [phone] Ledy Garcia, [place] [phone] documented as of this encounter Visit Diagnoses Not on filedocumented in this encounter Care Teams Torch Shearer Relationship Specialty Start Date End Date Nan Hutchins MD [address] [place] [phone] PCP - General 02/16/24 Nan Hutchins MD [address] [place] [phone] PCP - Clinical PCP 09/01/17 Nan Hutchins MD [address] [place] [phone] PCP - Insurance PCP 09/01/17 documented as of this encounter
--- OUTSIDE RECORDS SUMMARY | 2025-09-26 18:44 | XMS_ITS | Clinical Summary ---
Author Organization [facility] Address [address] [place] [address] Phone Care Team Providers Care Regulatory Affairs Portfolio Leader Name Role Phone Nan Worthington MD Primary [...] Completed 03/24/2019, 02/16/2019 Procedures * Due to [place] [employer] law, this organization might not be sharing sensitive test results. Procedure Name Priority Date/Time Associated Diagnosis Comments CHLAMYDIA AND GONORRHEA, AMPLIFIED Routine 03/10/2023 10:40 AM EDT Screen for sexually transmitted diseases from Last 3 Months or Most Recently Relevant to Health Maintenance Results * Due to [place] [employer] law, this organization might not be sharing sensitive test results. * Chlamydia and Gonorrhea, Amplified (03/10/2023 10:40 AM EDT) Chlamydia trachomatis RNA, TMA NOT DETECTED NOT DETECTED [employer] Neisseria gonorrhoeae, AMANDA NOT DETECTED NOT DETECTED Carn[employer] Comment Carnival Comment: The analytical performance characteristics of this assay, when used to test SurePath(TM) specimens have been determined by [employer]. The modifications have not been cleared or approved by the FDA. This assay has been validated pursuant to the CLIA regulations and is used for clinical purposes. For additional information, please refer to https://education.[employer]/faq/YZA425 (This link is being provided for information/ educational purposes only.) Urine (Urine) 03/10/2023 10: 40 AM EDT 03/11/2023 12:03 AM EDT Narrative Resulting Agency Comment Performing Organization Information: Site ID: [id number] Name: [employer] Address: [address] [place] [id number] Director: Cecilia Martini Nan Worthington MD LAB MICROBIOLOGY - GENERAL ORDERABLES Final Result IDbyME from Last 3 Months or Most Recently Relevant to Health Maintenance Care Teams Regulatory Affairs Portfolio Leader Relationship Specialty Start Date End Date Nan Worthington MD [address] [place] [address] [phone] [facility] - General 11/20/16
--- OUTSIDE RECORDS SUMMARY | 2025-09-26 18:44 | XMS_ITS | Encounter Summary ---
Author Organization [facility] Address [address] [place] [address] Phone Care Team Providers Care Stereo Equipment Installer Name Role Phone Nan Worthington MD Primary Care Pr ovider Encounter Details Date Type Department Care Team (Late st Contact Info) Description 11/27/2017 Conversion Encounter [facility] [address] [place] [address] Nan Worthington MD [address] [place] [address] Social History Tobacco Use Types Packs/Day Years [...] on filedocumented in this encounter Care Teams Stereo Equipment Installer Relationship Specialty Start Date End Date Nan Worthington MD [address] [place] [address] PCP - General 11/20/16 documented as of this encounter
--- OUTSIDE RECORDS SUMMARY | 2025-09-26 18:45 | XMS_ITS | Encounter Summary ---
Author Organization [facility] Address [address] [place] [address] Phone Care Team Providers Care Hard Tile Setter Apprentice Name Role Phone Nan Hutchins MD Primary Care Provider Nan Hutchins MD Unavailable Nan Hutchins MD Unavailable Reason for Visit * Reason Onset Date Comments Pre procedure labs 09/23/2025 Encounter Details Date Type Department Care Team (Late st Contact Info) Description 09/23/2025 Telephone [facility] Gynecology [address] [place] [phone] Stephanie Dennis RN [address] [place] [address] Pre procedure labs Social History Tobacco Use Types Packs/Day Years Used Date Smoking Tobacco: Never Passive Smoke Exposure: Current Smokeless Tobacco: Never Comments Unknown Sex and Gender Information Value Date Recorded Sex Assigned at Female 05/26/2024 7:47 AM EDT Legal Sex Male 7:47 AM EDT Gender Identity Not on file Sexual Orientation Not on file documented as of this encounter Miscellaneous Notes * Telephone Encounter - Stephanie Dennis RN - 09/23/2025 3:06 PM EST Spoke with pt and he wants to get pre procedure labs done in [place], [place]. Driving and will either call or portal message with lab information. Pt is aware he needs to do labs 3-4 wks before procedure date. Stephanie Dennis, RN documented in this encounter Plan of Treatment Upcoming Encounters Date Type Department Care Team (Late st Contact Info) Description 11/15/2025 9:00 AM EST Office Visit [facility] Gynecology [address] [place] [phone] Idalia Hammond, BOX OFFICE ATTENDANT [address] [place] [address] 09/19/2026 10:30 AM EST Office Visit [address] [phone] Ledy Garcia, BOX OFFICE ATTENDANT [address] [place] [address] documented as of this encounter Visit Diagnoses Not on filedocumented in this encounter Care Teams Hard Tile Setter Apprentice Relationship Specialty Start Date End Date Nan Hutchins MD [address] [place] [address] PCP - General 02/16/24 Nan Hutchins MD [address] [place] [phone] PCP - Clinical PCP 09/01/17 Nan Hutchins MD [address] [place] [phone] PCP - Insurance PCP 09/01/17 documented as of this encounter
--- OUTSIDE RECORDS SUMMARY | 2025-09-26 18:45 | XMS_ITS | Encounter Summary ---
Author Organization [facility] Address [address] [place] [address] Phone Care Team Providers Care Training Intern Name Role Phone Nan Fink NP Primary Care Provider + [phone] Encounter Details Date Type Department Care Team (Late st Contact Info) Description 05/05/2025 Procedure Pass MRI, [facility] [address] [place] [address] Social History Tobacco Use Types Packs/Day Years [...] high school, GED, job training, learning the Gabonese language, technical skills, or developing parenting skills)? [...] Description 01/05/2026 10:00 AM EDT Office Visit [facility] D[facility] [address] [place] [address] Hayden Castillo MD, PhD [address] [place] [phone] [email or web address] 01/17/2026 4:20 PM EDT Telemedicine [facility] Rheumatology Clinic [address] [place] [address] Carlos Galo DO [address] [place] [phone] [email or web address] documented as of this encounter Visit Diagnoses Not on filedocumented in this encounter Care Teams Training Intern Relationship Specialty Start Date End Date Nan Fink NP [address] [place] [phone] PCP - General 11/25/20 documented as of this encounter Additional Source Comments The information contained in this document represents components of the legal health record. It is not the complete legal health record.[facility]
--- OUTSIDE RECORDS SUMMARY | 2025-09-26 18:45 | XMS_ITS | Encounter Summary ---
Author Organization [facility] Address [address] [place] [address] Phone Care Team Providers Care Computer Repair Engineer Name Role Phone Nan Worthington MD Primary Care Pr ovider Reason for Visit * Reason Onset Date Comments Med Refill 04/07/2020 Encounter Details Date Type Department Care Team ([facility] st Contact Info) Description 04/07/2020 Refill [facility] [address] [address] Nan Worthington MD [address] [place] [address] Attention deficit disorder (ADD) without hyperactivity; Encounter [...] review documented in this encounter Care Teams Computer Repair Engineer Relationship Specialty Start Date End Date Nan Worthington MD [address] [place] [phone] PCP - General 11/20/16 documented as of this encounter
--- OUTSIDE RECORDS SUMMARY | 2025-09-26 18:45 | XMS_ITS | Encounter Summary ---
Author Organization [facility] Address [address] [place] [address] Phone Care Team Providers Care Side Panel Hanger Name Role Phone Nan Worthington MD Primary Care Pr ovider Reason for Visit * Reason Onset Date Comments Med Refill 11/28/2021 Encounter Details Date Type Department Care Team ([facility] st Contact Info) Description 11/28/2021 Refill [facility] [address] [address] Nan Worthington MD [address] [place] [address] Attention deficit disorder (ADD) without hyperactivity Social [...] hyperactivity documented in this encounter Care Teams Side Panel Hanger Relationship Specialty Start Date End Date Nan Worthington MD [address] [place] [phone] PCP - General 11/20/16 documented as of this encounter
--- OUTSIDE RECORDS SUMMARY | 2025-09-26 18:45 | XMS_ITS | Clinical Summary ---
Author Organization [facility] Address [address] [place] [address] Care Team Providers Care Knitting Supervisor Name Role Phone Nan Hutchins Primary Care Provi roger Allergies Active Allergy Reactions Criticality Noted Date Comments Cottonseed Oil Rash Low 03/10/2020 Medications sertraline (ZOLOFT) 50 MG tablet Take 1.5 tablets by mouth daily. 01/18/2020 Active melatonin 5 mg Tab Take 5 mg by mouth at bedtime. Active methylphenidate HCl (RITALIN LA) 30 MG 24 hr capsule Take 30 mg by mouth daily. 03/04/2020 Active testosterone enanthate (DELATESTRYL) 200 mg/mL injection Inject 0.425 mL into the shoulder, thigh, or buttocks every Friday. Active Social History Tobacco Use Types Packs/Day Years Used Date Smoking Tobacco: Never Smokeless Tobacco: Never Alcohol Use Standard Drinks/Week Comments Not Currently 0 (1 standard drink = 0.6 oz pur e alcohol) Comments Unknown Sex and Gender Information Value Date Recorded Sex Assigned at Female 10/28/2023 5:50 PM EST Legal Sex Male 6:01 PM EST Gender Identity Male 10/28/2023 5:50 PM EST Sexual Orientation Not on file Last Filed Vital Signs Vital Sign Reading Time Taken Comments Blood Pressure 105/71 03/10/2020 6:27 PM EDT Pulse 71 03/10/2020 6:27 PM EDT Temperature 37.2 C (99 F) 03/10/2020 6:27 PM EDT Respiratory Rate 16 03/10/2020 6:27 PM EDT Oxygen Saturation 100% 03/10/2020 6:27 PM EDT Inhaled Oxygen Concentration - - Weight - - Height 167.6 cm (5' 6 ) 03/10/2020 3:16 PM EDT Body Mass Index - - Plan of Treatment Health Maintenance Due Date Last Done Comments Blood Pressure 2000 Depression Screening 2012 Chlamydia and Gonorrhea Screening 12/08/2015 Hepatitis C Screening 2018 DTaP,Tdap,and Td Vaccines (1 - Tdap) 12/08/2019 Cervical Cancer Screening 2021 Pap Smear 2021 COVID-19 Vaccine (1 - 2024-2 6 season) 2025 Influenza Vaccine (#1) 2025 Meningococcal B Vaccines Aged Out No longer eligible based on patient's age to complete this topic Meningococcal Vaccines Aged Out No lo nger eligible based on patient's age to complete this topic Pneumococcal Vaccine Aged Out No long er eligible based on patient's age to complete this topic [place] [address] [place] [address] Care Teams Knitting Supervisor Relationship Specialty Start Date End Date Nan Hutchins PCP - General 03/10/20
--- OUTSIDE RECORDS SUMMARY | 2025-09-26 18:45 | XMS_ITS | Clinical Summary ---
Author Organization [facility] Address [address] [facility] [address] [place] [address] Phone Care Team Providers Care Rate Inserter Name Role Phone Nan Fink NP Primary Care Provider + [phone] Allergies Active Allergy Reactions Criticality Noted Date [...] Encounters Date Type Department Care Team Description 08/23/2025 3:20 PM EST Telemedicine [facility] [address] [place] [phone] Carlos Galo DO Arthralgia, unspecified joint (Primary Dx); Positive NEO (antinuclear antibody); Medication management; Systemic lupus erythematosus, unspecified SLE type, unspecified organ involvement status 07/21/2025 Refill [facility] [address] [place] [phone] Iraj Carlos, DO Medication Refill from Last 3 Months [...] high school, GED, job training, learning the [place] language, technical skills, or developing parenting skills)? [...] is your housing situation today? I have jonaaron moyer 06/21/2024 How many times have you moved in the past 12 fri? Two or more times 06/21/2024 Paying for [...] have reliable internet access at home? Ye pili 06/21/2024 Do you have a device (e.g., [...] Description 01/05/2026 10:00 AM EDT Office Visit [facility] [address] [place] [address] Hayden Castillo MD, PhD [address] [place] [phone] [email or web address] 01/17/2026 4:20 PM EDT Telemedicine [facility] [address] [place] [address] Carlos Galo DO [address] [place] [address] [email or web address] Health Maintenance Due Date Last Done Comments DEPRESSION SCREENING 2012 SMOKING Hx and SMOKELESS TOBACCO SCREENING 2013 HPV VACCINES (1 - 3-dose series) 12/08/2015 HEPATITIS C SCREENING 2018 HIV ONE-TIME SCREENING (18-65 YEARS) 2018 INFLUENZA VACCINE (#1) 2025 , 10/07/2023, 08/30/2022, Additional history exists COVID-19 VACCINE ( season) 2025 06/05/2024, 10/07/2023, 06/19/2022, Additional history exists Adult Td,Tdap Booster 06/05/2034 06/05/2024 , 03/05/2021, 04/16/2011 HEPATITIS A VACCINES Aged Out 03/05/2021 No long er eligible based on patient's age to complete this topic HIB VACCINES Aged Out No longer eligi [...] Procedure Name Priority Date/Time Associated Diagnosis Comments URINALYSIS Routine 08/26/2025 4:29 PM EST Arthralgia, unspecified joint Positive NEO (antinuclear antibody) Medication management TOTAL PROTEIN CREATININE RATIO, RANDOM URINE Routine 08/26/2025 4:29 PM EST Arthralgia, unspecified joint Positive NEO (antinuclear antibody) Medication management CBC AND DIFFERENTIAL Routine 08/26/2025 4:26 PM EST Arthralgia, unspecified joint Positive NEO (antinuclear antibody) Medication management CBC AND DIFFERENTIAL Routine 08/26/2025 4:26 PM EST Arthralgia, unspecified joint Positive NEO (antinuclear antibody) Medication management LFTS (HEPATIC PANEL) Routine 08/26/2025 4:26 PM EST Arthralgia, unspecified joint Positive NEO (antinuclear antibody) Medication management SEDIMENTATION RATE (ESR) Routine 08/26/2025 4:26 PM EST Arthralgia, unspecified joint Positive NEO (antinuclear antibody) Medication management C-REACTIVE PROTEIN (CRP) Routine 08/26/2025 4:26 PM EST Arthralgia, unspecified joint Positive NEO (antinuclear antibody) Medication management CREATININE WITH ESTIMATED GLOMERULAR FILTRATION RATE (EGFR) Routine 08/26/2025 4:26 PM EST Arthralgia, unspecified joint Positive NEO (antinuclear antibody) Medication management COMPLEMENT C3 Routine 08/26/2025 4:26 PM EST Arthralgia, unspecified joint Positive ENO (antinuclear antibody) Medication management COMPLEMENT C4 Routine 08/26/2025 4:26 PM EST Arthralgia, unspecified joint Positive NEO (antinuclear antibody) Medication management DOUBLE STRANDED DNA ANTIBODIES Routine 08/26/2025 4:26 PM EST Arthralgia, unspecified joint Positive NEO (antinuclear antibody) Medication management SM (WU) ANTIBODY Routine 08/26/2025 4 :26 PM EST Arthralgia, unspecified joint Positive NEO (antinuclear antibody) Medication management from Last 3 Months Results * Protein/Creatinine Ratio, Random Urine, Total (08/26/2025 4:29 PM EST) Total Protein/Creati nine Ratio, Urine 08/26/2025 10:07 PM EST [facility] Comment:Unable to calculate. Total Protein, Urine <4.0 <=13.5 mg/dL 08/26/2025 10:07 PM EST [facility] Creatinine, Urine 53 mg/dL 08/26/2025 10:07 PM [facility] Urine (Urine, Voided) Non-Blood Collection / Unknown 08/26/2025 4:29 PM EST 08/26/2025 4:49 PM EST [facility] - 08/26/2025 10:07 PM EST The reference interval(s) are unavailable for this specimen type. Comparison of this result with other laboratory results, such as the concentration in the blood, serum, or plasma, is recommended. The test result should be integrated into the clinical context for interpretation. [facility] URINE ORDERABLES Final Result Performing Organization Address City/[facility]/ZIP Co de Phone Number [facility] [address] [place] [address] * Urinalysis (08/26/2025 4:29 PM EST) Color Yellow Yellow 08/26/2025 4:52 PM EST [facility] Clarity Clear Clear 08/26/2025 4:52 PM EST [facility] Glucose Negative Negative 08/26/2025 4:52 PM EST [facility] Bilirubin Urine Negative Negative 4:52 PM EST [facility] Ketone Urine Negative Negative 08/26/2025 4:52 PM EST [facility] Specific [place] 1.025 1.001 - 1.035 08/26/2025 4:52 PM EST [facility] Blood Negative Negative 08/26/2025 4:52 PM EST [facility] pH 7.0 5.0 - 8.0 08/26/2025 4:52 PM EST [facility] Protein Negative Negative 08/26/2025 4:52 PM EST [facility] Nitrites Negative Negative 08/26/2025 4:52 PM EST [facility] Leukocyte Esterase Negative Negative 08/26/2025 4:52 PM EST [facility] Urobilinogen Negative Negative 08/26/2025 4:52 PM EST [facility] Urine (Urine, Voided) Non-Blood Collection / Unknown 08/26/2025 4:29 PM EST 08/26/2025 4:49 PM EST [facility] LAB URINE ORDERABLES Final Result Performing Organization Address City/[facility]/ZIP Co de Phone Number [facility] [address] [place] [address] * Creatinine with Estimated Glomerular Filtration Rate (eGFR) (08/26/2025 4:26 PM EST) Creatinine 1.03 0.60 - 1.30 mg/dL 08/26/2025 8:52 PM [facility] eGFR 104 >59 mL/min/1.7 3m2 08/26/2025 8:52 PM [facility] Comment:Estimated glomerular filtration rate calculated using the CKD-EPI refit equation. Blood (Blood) Venipuncture / Unknown 08/26/2025 4:26 PM EST 08/26/2025 4:49 PM EST us Carlos Galo DO LAB BLOOD BKR ORDERABLES Fi nal Result [facility] [address] [place] [address] * (ABNORMAL) CBC and Differential (08/26/2025 4:26 PM EST) WBC 7.94 4.00 - 11.00 K/uL 08/26/2025 8:32 PM [facility] RBC 4.96 4.50 - 5.90 M/uL 08/26/2025 8:32 PM [facility] Hemoglobin 15.5 >6.0 - <21.0 g/dL 08/26/2025 8:32 PM [facility] Hematocrit 44.6 41.0 - 53.0 % 08/26/2025 8:32 PM [facility] MCV 89.9 80.0 - 100.0 fL 08/26/2025 8:32 PM [facility] MCH 31.3(H) 27.0 - 31.0 pg 08/26/2025 8:32 PM [facility] MCHC 34.8 32.0 - 36.0 g/dL 08/26/2025 8:32 PM [facility] MPV 10.4 8.4 - 12.0 fL 08/26/2025 8:32 PM [facility] RDW-CV 11.9 11.5 - 14.5 % 08/26/2025 8:32 PM [facility] PLT 235 150 - 450 K/uL 08/26/2025 8:32 PM [facility] Neutrophils 68.5 % 08/26/2025 8:32 PM [facility] Lymphocytes 17.5 % 08/26/2025 8:32 PM [facility] Monocytes 6.9 % 08/26/2025 8:32 PM [facility] Eosinophils 6.5 % 08/26/2025 8:32 PM [facility] Basophils 0.3 % 08/26/2025 8:32 PM [facility] Imm Grans 0.3 % 08/26/2025 8:32 PM [facility] NRBC 0.0 <=0.0 /100 WBCs 08/26/2025 8:32 PM [facility] Absolute Neutrophils 5.44 1.92 - 7.60 K/uL 08/26/2025 8:32 PM [facility] Absolute Lymphocytes 1.39 0.72 - 4.10 K/uL 08/26/2025 8:32 PM [facility] Absolute Monocytes 0.55 0.16 - 1.10 K/uL 08/26/2025 8:32 PM [facility] Absolute Eosinophils 0.52(H) 0.00 - 0.50 K/uL 08/26/2025 8:32 PM [facility] Absolute Basophils 0.02 0.00 - 0.15 K/uL 08/26/2025 8:32 PM [facility] Absolute Imm Grans 0.02 0.00 - 0.09 K/uL 08/26/2025 8:32 PM [facility] Absolute NRBC 0.00 <=0.00 K cells/uL 08/26/2025 8:32 PM [facility] Absolute Neutrophils 5.44 1.92 - 7.60 K/uL 08/26/2025 8:32 PM [facility] Comment:Automated cell count . Manual ANC may differ if performed. Diff Type Auto 08/26/2025 8:32 PM [facility] Blood (Blood) Venipuncture / Unknown 08/26/2025 4:26 PM EST 08/26/2025 4:49 PM EST us Carlos Galo DO LAB BLOOD BKR ORDERABLES Fi nal Result [address] [address] * Wu (Sm) Antibody (08/26/2025 4:26 PM EST) Pathologist [facility] Anti-Sm Antibody 3.5 <19.9 U 08/29/2025 12:02 PM EST [facility] SM Negative 08/29/2025 12:02 PM EST [facility] Blood (Blood) Venipuncture / Unknown 08/26/2025 4:26 PM EST 08/26/2025 4:49 PM EST Carlos Galo DO LAB BLOOD BKR ORDERABLES Fi nal Result Performing Organization Address City/[facility]/ZIP Co de Phone Number [address] [address] * Hepatic Panel (LFTs) (08/26/2025 4:26 PM EST) Pathologist [facility] AST 19 10 - 40 U/L 08/26/2025 8:52 PM [facility] ALT 18 10 - 55 U/L 08/26/2025 8:52 PM [facility] Alkaline Phosphatase 77 40 - 130 U/L 08/26/2025 8:52 PM [facility] Bilirubin, Total 0.4 0.0 - 1.2 mg/dL 08/26/2025 8:52 PM [facility] Bilirubin, Direct 0.1 0.0 - 0.3 mg/dL 08/26/2025 8:52 PM [facility] Total Protein 7.4 6.4 - 8.3 g/dL 08/26/2025 8:52 PM [facility] Albumin 4.6 3.5 - 5.2 g/dL 08/26/2025 8:52 PM [facility] Globulin 2.8 1.9 - 4.1 g/dL 08/26/2025 8:52 PM [facility] Blood (Blood) Venipuncture / Unknown 08/26/2025 4:26 PM EST 08/26/2025 4:49 PM EST Carlos Galo DO LAB BLOOD BKR ORDERABLES Fi nal Result Performing Organization Address City/[facility]/ZIP Co de Phone Number [address] [address] * Double-Stranded DNA Antibodies (08/26/2025 4:26 PM EST) Double Stranded DNA Negative at 1:10 Negative at 1:10 08/29/2025 1:59 PM EST [facility] Blood (Blood) Venipuncture / Unknown 08/26/2025 4:26 PM EST 08/26/2025 4:49 PM EST [place] [email or web address] DO LAB BLOOD BKR ORDERABLES Fi nal Result [address] [address] * Erythrocyte Sedimentation Rate (ESR) (08/26/2025 4:26 PM EST) Pathologist [facility] ESR 9 0 - 15 mm/h 08/26/2025 8:32 PM EST [facility] Blood (Blood) Venipuncture / Unknown 08/26/2025 4:26 PM EST 08/26/2025 4:49 PM EST Carlos [email or web address] LAB BLOOD BKR ORDERABLES Fi nal Result Performing Organization Address City/[facility]/ZIP Co de Phone Number [address] [address] * Complement C3 (08/26/2025 4:26 PM EST) C3 125 81 - 157 mg/dl 08/29/2025 9:59 AM EST [facility] Blood (Blood) Venipuncture / Unknown 08/26/2025 4:26 PM EST 08/26/2025 4:49 PM EST [place] [email or web address] LAB BLOOD BKR ORDERABLES Fi nal Result Performing Organization Address City/[facility] Co de Phone Number [address] [address] * Complement C4 (08/26/2025 4:26 PM EST) C4 21 12 - 39 mg/dL 08/29/2025 9:59 AM EST [facility] Blood (Blood) Venipuncture / Unknown 08/26/2025 4:26 PM EST 08/26/2025 4:49 PM EST us Carlos Galo DO LAB BLOOD BKR ORDERABLES Fi nal Result [address] [address] * C-Reactive Protein (CRP) (08/26/2025 4:26 PM EST) C Reactive Protein 2.0 <10.0 mg/L 08/26/2025 8:52 PM EST [facility] Comment:NOTE: This reference range is for the evaluation of inflammation. Order CRP, High Sensitivity for cardiac risk status evaluation. Blood (Blood) Venipuncture / Unknown 08/26/2025 4:26 PM EST 08/26/2025 4:49 PM EST Carlos Yanceyjessica DO LAB BLOOD BKR ORDERABLES Fi nal Result Performing Organization Address City/[facility]/ZIP Co de Phone Number [address] [address] from Last 3 Months [facility] [place] [address] [place] [address] PPO EPO [facility] [place] [address] [place] [address] PPO EPO [facility] PPO EPO [facility] PPO EPO PPO EPO [facility] PPO EPO Care Teams Rate Inserter Relationship Specialty Start Date End Date Nan Fink NP [address] [place] [address] PCP - General 11/25/20 Additional Source Comments The information contained in this document represents components of the legal health record. It is not the complete legal health record.[facility]
--- OUTSIDE RECORDS SUMMARY | 2025-09-26 18:45 | XMS_ITS | Encounter Summary ---
Author Organization [facility] Address [address] [place] [address] Phone Care Team Providers Care Executive Compensation Analyst Name Role Phone Nan Worthington MD Primary Care Pr ovider Reason for Visit * Reason Onset Date Comments Med Refill 01/19/2020 Encounter Details Date Type Department Care Team (Late st Contact Info) Description 01/19/2020 Refill [facility] [address] [place] [address] Nan Worthington MD [address] [place] [address] Attention deficit disorder (ADD) without hyperactivity [...] hyperactivity documented in this encounter Care Teams Executive Compensation Analyst Relationship Specialty Start Date End Date Nan Worthington MD [address] [place] [address] PCP - General 11/20/16 documented as of this encounter
--- OUTSIDE RECORDS SUMMARY | 2025-09-26 18:45 | XMS_ITS | Encounter Summary ---
Author Organization [facility] Address [address] [place] [address] Phone Care Team Providers Care Parachute Accessories Attacher Name Role Phone Nan Worthington MD Primary Care Pr ovider Reason for Visit * Reason Onset Date Comments Med Refill 11/28/2021 Encounter Details Date Type Department Care Team ([facility] st Contact Info) Description 11/28/2021 Refill [facility] [address] [address] Nan Worthington MD [address] [place] [address] Attention deficit disorder (ADD) without hyperactivity Social [...] hyperactivity documented in this encounter Care Teams Parachute Accessories Attacher Relationship Specialty Start Date End Date Nan Worthington MD [address] [place] [address] PCP - General 11/20/16 documented as of this encounter
--- OUTSIDE RECORDS SUMMARY | 2025-09-26 18:45 | XMS_ITS | Encounter Summary ---
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 (Primary [...] Department Care Team (Late Contact Info) Description 11/15/2025 9:00 AM EST Office Visit [facility] [address] [place] [address] Idalia Hammond, HEADING SAW OPERATOR [address] [place] [address] 09/19/2026 10:30 AM EST Office Visit [facility] [address] [place] [phone] Ledy Garcia, HEADING SAW OPERATOR [address] [place] [address] Scheduled Orders Name Type Priority Associated Diagnoses [...] Primary documented in this encounter Care Teams Communications Controller Relationship Specialty Start Date End Date Nna Hutchins MD [address] [place] [phone] PCP - General 02/16/24 Nan Hutchins MD [address] [place] [address] PCP - Clinical PCP 09/01/17 Nan Hutchins MD [address] [place] [address] PCP - Insurance PCP 09/01/17 documented as of this encounter
--- OUTSIDE RECORDS SUMMARY | 2025-09-26 18:45 | XMS_ITS | Encounter Summary ---
Author Organization [facility] Address [address] [place] [address] Phone Care Team Providers Care Road Advisor Name Role Phone Nan Worthington MD Primary Care Pr ovider Reason for Visit * Reason Onset Date Comments Med Refill 10/26/2020 Encounter Details Date Type Department Care Team ([facility] st Contact Info) Description 10/26/2020 Refill [facility] [address] [address] Nan Worthington MD [address] [place] [address] Attention deficit disorder (ADD) without hyperactivity; Encounter [...] review documented in this encounter Care Teams Road Advisor Relationship Specialty Start Date End Date Nan Worthington MD [address] [place] [address] PCP - General 11/20/16 documented as of this encounter
--- OUTSIDE RECORDS SUMMARY | 2025-09-26 18:45 | XMS_ITS | Encounter Summary ---
Author Organization [facility] Address [address] [place] [address] Phone Care Team Providers Care Plaster Mold Maker Name Role Phone Nan Worthington MD Primary Care Pr ovider Reason for Visit * Reason Onset Date Comments Med Refill 06/12/2021 Encounter Details Date Type Department Care Team ([facility] st Contact Info) Description 06/12/2021 Refill [facility] [address] [address] Nan Worthington MD [address] [place] [address] Attention deficit disorder (ADD) without hyperactivity Social [...] hyperactivity documented in this encounter Care Teams Plaster Mold Maker Relationship Specialty Start Date End Date Nan Worthington MD [address] [place] [phone] PCP - General 11/20/16 documented as of this encounter
--- OUTSIDE RECORDS SUMMARY | 2025-09-26 18:45 | XMS_ITS | Encounter Summary ---
Author Organization [facility] Address [address] [place] [address] Phone Care Team Providers Care Passenger Elevator Operator Name Role Phone Nan Worthington MD Primary Care Pr ovider Reason for Visit * Reason Comments Med Refill Encounter Details Date Type Department Care Team ([facility] st Contact Info) Description 11/14/[address] [address] Nan Worthington MD [address] [place] [address] Other depression Social History Tobacco Use Types [...] depression documented in this encounter Care Teams Passenger Elevator Operator Relationship Specialty Start Date End Date Nan Worthington MD [address] [place] [phone] PCP - General 11/20/16 documented as of this encounter
--- OUTSIDE RECORDS SUMMARY | 2025-09-26 18:45 | XMS_ITS | Encounter Summary ---
Author Organization [facility] Address [address] [place] [address] Phone Care Team Providers Care International Logistics Analyst Name Role Phone Nan Worthington MD Primary Care Pr ovider Reason for Visit * Reason Onset Date Comments Med Refill 08/24/2020 Encounter Details Date Type Department Care Team ([facility] st Contact Info) Description 08/24/[address] [address] Nan Worthington MD [address] [place] [address] Attention deficit disorder (ADD) without hyperactivity; Encounter [...] review documented in this encounter Care Teams International Logistics Analyst Relationship Specialty Start Date End Date Nan Worthington MD [address] [place], [place] [phone] PCP - General 11/20/16 documented as of this encounter
--- OUTSIDE RECORDS SUMMARY | 2025-09-26 18:45 | XMS_ITS | Encounter Summary ---
Author Organization [facility] Address [address] [facility] [address] [place] [address] Phone Care Team Providers Care Acid Cleaner Name Role Phone Nan Fink NP Primary Care Provider + [phone] Encounter Details Date Type Department Care Team (Latest Contact Info) Description 04/24/2024 Ancillary Orders [facility] [address] [place] [address] Carlos Galo, DO [address] [place] [address] [email or web address] Arthralgia, unspecified joint (Primary Dx) Social History [...] Description 01/05/2026 10:00 AM EDT Office Visit [facility] [address] [place] [address] Hayden Castillo MD, PhD [address] [place] [phone] [email or web address] 01/17/2026 4:20 PM EDT Telemedicine [facility] [address] [place] [address] Carlos Galo DO [address] [place] [phone] [email or web address] documented as of this encounter Results * [...] Primary documented in this encounter Care Teams Acid Cleaner Relationship Specialty Start Date End Date Nan Fink NP [address] [place] [phone] PCP - General 11/25/20 documented as of this encounter Additional Source Comments The information contained in this document represents components of the legal health record. It is not the complete legal health record.[facility]
--- OUTSIDE RECORDS SUMMARY | 2025-09-26 18:45 | XMS_ITS | Encounter Summary ---
Author Organization [facility] Address [address] [place] [address] Phone Care Team Providers Care Sander Portable Machine Name Role Phone Nan Worthington MD Primary Care Pr ovider Reason for Visit * Reason Onset Date Comments Med Refill 03/02/2022 Encounter Details Date Type Department Care Team ([facility] st Contact Info) Description 03/02/2022 Refill [facility] [address] [address] Nan Worthington MD [address] [place] [address] Attention deficit disorder (ADD) without hyperactivity Social [...] hyperactivity documented in this encounter Care Teams Sander Portable Machine Relationship Specialty Start Date End Date Nan Worthington MD [address] [place] [phone] PCP - General 11/20/16 documented as of this encounter
--- OUTSIDE RECORDS SUMMARY | 2025-09-26 18:45 | XMS_ITS | Encounter Summary ---
Author Organization [facility] Address [address] [place] [address] Phone Care Team Providers Care Hard Candy Batch Mixer Name Role Phone Nna Fink NP Primary Care Provider + [phone] Encounter Details Date Type Department Care Team (Late st Contact Info) Description 05/05/2025 Procedure Pass MRI, [facility] [address] [place] [address] Social History Tobacco Use Types Packs/Day Years [...] high school, GED, job training, learning the Syrian language, technical skills, or developing parenting skills)? [...] Description 01/05/2026 10:00 AM EDT Office Visit [facility] [address] [place] [phone] Hayden Castillo MD, PhD [address] [place] [phone] [email or web address] 01/17/2026 4:20 PM EDT Telemedicine [facility] Rheumat[facility] [address] [place] [phone] Carlos Galo DO [address] [place] [phone] [email or web address] documented as of this encounter Visit Diagnoses Not on filedocumented in this encounter Care Teams Hard Candy Batch Mixer Relationship Specialty Start Date End Date Nan Fink NP [address] [place] [id number] PCP - General 11/25/20 documented as of this encounter Additional Source Comments The information contained in this document represents components of the legal health record. It is not the complete legal health record.[facility]
--- OUTSIDE RECORDS SUMMARY | 2025-09-26 18:45 | XMS_ITS | Encounter Summary ---
Author Organization [facility] Address [address] [place] [phone] Phone Care Team Providers Care Produce Field Merchandiser Name Role Phone Nan Worthington MD Primary Care Pr ovider Reason for Visit * Reason Comments Med Refill Encounter Details Date Type Department Care Team ([facility] st Contact Info) Description 10/23/2021 Refill [facility] [address] [address] Robel Roblero MD [address] [place] [phone] Other depression Social History Tobacco Use Types [...] depression documented in this encounter Care Teams Produce Field Merchandiser Relationship Specialty Start Date End Date Nan Worthington MD [address] [place] [phone] PCP - General 11/20/16 documented as of this encounter
--- OUTSIDE RECORDS SUMMARY | 2025-09-26 18:45 | XMS_ITS | Encounter Summary ---
Author Organization [facility] Address [address] [place] [phone] Phone Care Team Providers Care Direct Service Professional Name Role Phone Nan Worthington MD Primary Care Pr ovider Reason for Visit * Reason Onset Date Comments Med Refill 11/13/2022 Encounter Details Date Type Department Care Team ([facility] st Contact Info) Description 11/13/2022 Refill [facility] [address] [address] Nan Worthington MD [address] [place] [phone] Other depression Social History Tobacco Use Types [...] to schedule med check. Looks like multiple Qurit messages have been sent regarding need to [...] depression documented in this encounter Care Teams Direct Service Professional Relationship Specialty Start Date End Date Nan Worthington MD [address] [place] [id number] PCP - General 11/20/16 documented as of this encounter
== END 2025-09-26 18:42 ==
LOC: HO.LNP 18:41
PROVIDERS: Visit Provider Physician Assistant Medical
DX: Z00.00 Encounter for general adult medical examination without abnormal findings (principal); K29.70 Gastritis, unspecified, without bleeding; K21.9 Gastro-esophageal reflux disease without esophagitis; F41.8 Other specified anxiety disorders; Z13.6 Encounter for screening for cardiovascular disorders
CPT/HCPCS: 87338